=== PATIENT | female | born 1950 | race Caucasian/White ===

== ENCOUNTER 2016-08-03 14:09 | Inpatient (IN) | payer MEDICARE, OTHER ==
[~2016-08-03 14:09] MED LIST: ALPR0.25 PO; ASPI-482 PO; ATEN50TA PO; ATOR10TA60 PO; Amoxicillin PO; CETI10TA22 PO; CITA40TA12 PO; CLOP75TA27 PO; ERGO500012 PO; ESCI20TA PO; FLUT16SP NS; FURO-68 PO; HYDR12.53 PO; HYDR1TAB26 PO; LISI-334 PO; LISI10TA2 PO; LISI1TAB5 PO; LORA0.5T PO; LORA1TAB PO; MECL12.52 PO; NITR0.4T SL; OMEP20TA PO; OXYC10TA PO; OXYC10TA32 PO; SIMV40TA3 PO; VENTOLIN HFA18 GM INH; ZOLP10TA PO; ZOLP5TAB PO
[2016-08-03 16:23] VITALS: BP 154/71
[2016-08-03] MEDS ORDERED: ACETAMINOPHEN 325 MG TABLET. PO PRN ×2 (18:15→22:30)
--- NOTE | 2016-08-03 18:40 | EKG ---
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
[2016-08-03 19:00] VITALS: BP 136/56
[2016-08-03 19:26] VITALS: BP 154/71
[2016-08-03] MEDS ORDERED: IV NORMAL SALINE 1000ML BAG 1,000 ML IV SCH (20:00)
[2016-08-03] MEDS ORDERED: ATORVASTATIN CALCIUM 10 MG TABLET. PO SCH (21:00)
[2016-08-03] MEDS: HYDROCODONE/APAP 5/325MG TABLET. PO SCH (21:28)
[2016-08-03] MEDS: NICOTINE 7MG PATCH. TD SCH (21:30)
[2016-08-03 22:41] VITALS: BP 124/62
[2016-08-04 02:34] VITALS: BP 122/49
[2016-08-04 04:47] LABS: BASO # 0.1 x10^3/uL (0.0-0.2); BASO % 1 % (0-3); EOS % 2 % (0-3); HEMATOCRIT 34.2 % (36.0-47.0); HEMOGLOBIN 11.5 g/dL (12.0-15.5); LYMPH # 2.2 x10^3/uL (1.0-4.8); LYMPH % 41 % (24-48); MEAN CORPUSCULAR HEMOGLOBIN 31 pg (25-35); MEAN CORPUSCULAR HGB CONC 34 g/dL (31-37); MEAN CORPUSCULAR VOLUME 92 fL (79-100); MONO % 11 % (0-9); NEUT % 45 % (31-73); PLATELET COUNT 175 x10^3/uL (140-400); RED BLOOD COUNT 3.73 x10^6/uL (3.50-5.40); WHITE BLOOD COUNT 5.5 x10^3/uL (4.0-11.0)
[2016-08-04 04:52] LABS: CALCIUM 8.3 mg/dL (8.5-10.1); CREATININE 1.2 mg/dL (0.6-1.0); GFR 44.9; POTASSIUM 3.6 mmol/L (3.5-5.1)
[2016-08-04 07:00] VITALS: BP 158/59
[2016-08-04] MEDS ORDERED: PANTOPRAZOLE 40 MG TABLET. PO SCH (07:30)
[2016-08-04] MEDS ORDERED: CLOPIDOGREL BISULFATE 75 MG TABLET PO SCH (08:00)
[2016-08-04] MEDS ORDERED: ASPIRIN ENTERIC COATED 81 MG TABLET.DR. PO SCH (08:00)
--- NOTE | 2016-08-04 08:41 | RAD ---
Indication wheezing. Shortness of breath. A single view of the chest was obtained and is compared to a study 11/26/2015. Postoperative changes are noted. Heart size is within normal limits. A focal infiltrate is not seen. Significant pleural fluid is not present and there is no pneumothorax. A significant change when compared to the previous exam is not seen. IMPRESSION: No acute or focal process. No significant change
[2016-08-04] MEDS: HYDROCODONE/APAP 5/325MG TABLET. PO SCH (08:43)
[2016-08-04] MEDS: NICOTINE 7MG PATCH. TD SCH (08:44)
[2016-08-04] MEDS ORDERED: LISINOPRIL 20 MG TABLET PO SCH (09:00)
[2016-08-04] MEDS ORDERED: ATENOLOL 25 MG TABLET PO SCH (09:00)
--- NOTE | 2016-08-04 10:33 | PDOC ---
Provider Note Provider Note Pt seen .H&P dictated. #[id number] RONNELL CALDERON MD Aug 04, 2016 10:33
[2016-08-04 11:00] VITALS: BP 160/62
[2016-08-04 12:01] VITALS: BP_SYST 62
--- NOTE | 2016-08-04 18:49 | HP ---
ADMIT DATE: 08/03/2016 REASON FOR ADMISSION TO THE HOSPITAL: Hyponatremia, sodium 124. HISTORY OF PRESENT ILLNESS: The patient is a 65-year-old female patient known to me. She has a history of hyponatremia, was admitted last summer for hyponatremia, fall as well as weakness. She had routine labs a couple of days ago with sodium 124. The patient was admitted to the hospital for correction of hyponatremia with normal saline. PAST MEDICAL HISTORY: History of hypertension, hyperlipidemia, hypothyroidism, COPD, anxiety and depression. PAST SURGICAL HISTORY: Heart bypass surgery, hip replacement, bilateral carotid endarterectomy and history of cardiac stents. ALLERGIES: MORPHINE AND TRAZODONE. MEDICATIONS: Aspirin 81 mg, Plavix 75 mg, Lasix 40 mg, hydrochlorothiazide 12.5, atenolol 50, atorvastatin 10, Lexapro 20, lisinopril 20 mg, omeprazole 20, Ambien 5 and hydrocodone 1 q. 6. PERSONAL HISTORY: Smoked for 30 years, trying to cut down. Denies alcohol. The patient is on chronic pain medications. FAMILY HISTORY: Positive for hypertension, heart disease and lung problems. REVIEW OF SYMPTOMS: Denies any chest pain, shortness of breath or abdominal pain. There are some problems with dentition and dental caries, needs to see dentist. Denies any chest pain, shortness of breath or abdominal pain. PHYSICAL EXAMINATION: GENERAL: The patient is not in any distress. VITAL SIGNS: Shows a temperature of 97, pulse 63, respirations 14, blood pressure 154/71, 96% on room air. HEENT: Head is atraumatic. Pupils equal. Oral cavity, bad dental cavities, caries in the lower jaw. NECK: Supple. Has scars of bilateral carotid surgeries. Thyroid not enlarged. CHEST: Symmetrical, scar of heart surgery. CARDIOVASCULAR: S1, S2. LUNGS: Clear. ABDOMEN: Soft. No mass palpable. EXTERNAL GENITALIA: No Rodrigues. RECTAL: Deferred. EXTREMITIES: No calf tenderness, no edema. Pulses 1+. NEUROLOGIC: Cranial nerves intact. Power 5/5 in all extremities. SKIN: Normal skin turgor. LYMPH NODES: No significant lymphadenopathy. LABORATORY DATA: In the office, sodium 124. FINAL IMPRESSION: 1. Hyponatremia.Na 124 in the office 2 days ago. 2. History of recurrent hyponatremia in the past. 3. Coronary artery disease, status post bypass surgery. 4. Hypertension. 5. Hyperlipidemia. 6. H/O Carotid endarterectomy. 7. Anxiety and depression. PLAN: At this time is to admit to hospital, hydrate with IV fluids, correct hyponatremia with normal saline and see how the patient's condition improves. monitor electrolytes. RONNELL CALDERON MD DR: CARIN/honey JOB#: [id number] / [id number] DONNA
== END 2016-08-04 11:45 | disposition home or self-care (01) | DRG 641 ==
LOC: 5 SOUTH 15:32
PROVIDERS: ADMIT Internal Medicine; ATTEND Internal Medicine
DX: E87.1 Hypo-osmolality and hyponatremia (principal); F32.9 Major depressive disorder, single episode, unspecified; F41.9 Anxiety disorder, unspecified; E03.9 Hypothyroidism, unspecified; E78.5 Hyperlipidemia, unspecified; Z96.649 Presence of unspecified artificial hip joint; I10 Essential (primary) hypertension; J44.9 Chronic obstructive pulmonary disease, unspecified; Z82.49 Family history of ischemic heart disease and other diseases of the circulatory system; Z95.5 Presence of coronary angioplasty implant and graft; Z88.5 Allergy status to narcotic agent; Z88.8 Allergy status to other drugs, medicaments and biological substances
CPT/HCPCS: 36415; 71010; 80048; 85027; 93005; J7030

== ENCOUNTER 2016-10-01 17:50 | Inpatient (IN) | payer MEDICARE, OTHER ==
[~2016-10-01] VITALS: Ht 160 cm; Wt 61.5 kg
[2016-10-01 18:37] LABS: BASO # 0.1 x10^3/uL (0.0-0.2); BASO % 1 % (0-3); EOS % 2 % (0-3); HEMATOCRIT 38.9 % (36.0-47.0); HEMOGLOBIN 13.1 g/dL (12.0-15.5); LYMPH # 1.8 x10^3/uL (1.0-4.8); LYMPH % 28 % (24-48); MEAN CORPUSCULAR HEMOGLOBIN 31 pg (25-35); MEAN CORPUSCULAR HGB CONC 34 g/dL (31-37); MEAN CORPUSCULAR VOLUME 92 fL (79-100); MONO % 12 % (0-9); NEUT % 57 % (31-73); PLATELET COUNT 288 x10^3/uL (140-400); RED BLOOD COUNT 4.21 x10^6/uL (3.50-5.40); RED CELL DISTRIBUTION WIDTH 14.2 % (11.5-14.5); WHITE BLOOD COUNT 6.5 x10^3/uL (4.0-11.0)
[2016-10-01 18:53] LABS: ANION GAP 7 (6-14); BLOOD UREA NITROGEN 38 mg/dL (7-20); CALCIUM 9.2 mg/dL (8.5-10.1); CARBON DIOXIDE 31 mmol/L (21-32); CHLORIDE 87 mmol/L (98-107); CREATININE 1.9 mg/dL (0.6-1.0); GFR 26.4; GLUCOSE 89 mg/dL (70-99); POTASSIUM 4.2 mmol/L (3.5-5.1); SODIUM 125 mmol/L (136-145)
[2016-10-01 18:59] LABS: ALBUMIN 3.7 g/dL (3.4-5.0); ALK PHOS 96 U/L (46-116); ALT (SGPT) 19 U/L (14-59); AST (SGOT) 28 U/L (15-37); DIRECT BILIRUBIN < 0.1 mg/dL (0.0-0.2); TOTAL BILIRUBIN 0.4 mg/dL (0.2-1.0); TOTAL PROTEIN 7.4 g/dL (6.4-8.2)
--- NOTE | 2016-10-01 19:18 | PHYS DOC ---
Past Medical History Past Medical History: Anxiety, Arthritis, Bronchitis, High Cholesterol, Hypertension Additional Past Medical Histor: blood clots Past Surgical History: Coronary Bypass Surgery, Hip Replacement, Other Additional Past Surgical Histo: total R hip, right shoulder, stent placement, R & L carotid Alcohol Use: None Drug Use: None Adult General Chief Complaint Chief Complaint: DIZZY/LIGHT HEADED HPI HPI 66-year-old female presenting the emergency department with a headache and generalized fatigue and malaise. She also reports feeling lightheaded when she stands up. She denies vertigo. She denies fevers chills or vision changes. Her headache is moderate nonradiating without alleviating factors. She has a history of headaches and this one is similar to previous. She describes it as sharp. Review of systems is negative for vision changes vomiting fevers chills chest pain or shortness of breath. All other review of systems is negative unless otherwise noted in history of present illness. Review of Systems Review of Systems SEE ABOVE. Current Medications Current Medications Current Medications Medications (Trade) Dose Ordered Sig/Sherrell Start Time Stop Time Status Last Admin Dose Admin Diphenhydramine HCl (Benadryl) 25 mg 1X ONCE 10/01/16 19:30 10/01/16 19:31 DC 10/01/16 19:36 25 MG Metoclopramide HCl (Reglan) 10 mg 1X ONCE 10/01/16 19:30 10/01/16 19:31 DC 10/01/16 19:39 10 MG Sodium Chloride 500 ml @ 500 mls/hr 1X ONCE 10/01/16 20:30 10/01/16 21:29 Allergies Allergies Allergies Coded Allergies Type Severity Reaction Last Updated Verified trazodone Allergy Severe "my throat closes up" 04/13/15 Yes morphine Adverse Reaction Intermediate hallucinations 04/13/15 Yes Physical Exam Physical Exam Constitutional: Well developed, well nourished, no acute distress, non-toxic appearance. [] HENT: Normocephalic, atraumatic, bilateral external ears normal, oropharynx moist, no oral exudates, nose normal. Nontender temporal artery bilaterally. Eyes: PERRLA, EOMI, conjunctiva normal, no discharge. [] Neck: Normal range of motion, no tenderness, supple, no stridor. Cardiovascular:Heart rate regular rhythm, no murmur [] Lungs & Thorax: Bilateral breath sounds clear to auscultation Abdomen: Bowel sounds normal, soft, no tenderness, no masses, no pulsatile masses. [] Skin: Warm, dry, no erythema, no rash. Back: No tenderness, no CVA tenderness. [] Extremities: No tenderness, no cyanosis, no clubbing, ROM intact, no edema. [] Neurologic: Mental status: Awake oriented and alert x3 Cranial nerves: Extraocular movements intact, eyebrows doris bilaterally smile symmetric, uvula elevation, shoulder shrug intact, tongue protrusion normal DTRs: 2+ Sensation: equal and normal in all extremities Strength: 5/5 in upper and lower extremities bilaterally Psychologic: Affect normal, judgement normal, mood normal. [] Current Patient Data Vital Signs Vital Signs Date Time Temp Pulse Resp B/P (MAP) Pulse Ox O2 Delivery O2 Flow Rate FiO2 10/01/16 18:15 97.8 62 15 162/71 (101) 95 Room Air 97.8 Lab Values Laboratory Tests Test 10/01/16 18:15 10/01/16 18:30 10/01/16 19:25 Sodium Level 125 mmol/L (136-145) L Potassium Level 4.2 mmol/L (3.5-5.1) Chloride Level 87 mmol/L (98-107) L Carbon Dioxide Level 31 mmol/L (21-32) Anion Gap 7 (6-14) Blood Urea Nitrogen 38 mg/dL (7-20) H Creatinine 1.9 mg/dL (0.6-1.0) H Estimated GFR (Cockcroft-Gault) 26.4 Glucose Level 89 mg/dL (70-99) Calcium Level 9.2 mg/dL (8.5-10.1) Total Bilirubin 0.4 mg/dL (0.2-1.0) Direct Bilirubin < 0.1 mg/dL (0.0-0.2) Aspartate Amino Transferase (AST) 28 U/L (15-37) Alanine Aminotransferase (ALT) 19 U/L (14-59) Alkaline Phosphatase 96 U/L (46-116) Troponin I Quantitative < 0.017 ng/mL (0.000-0.055) IP-Rbo-X-Type Natriuretic Peptide 150 pg/mL (0-124) H Total Protein 7.4 g/dL (6.4-8.2) Albumin 3.7 g/dL (3.4-5.0) Lipase 238 U/L (73-393) White Blood Count 6.5 x10^3/uL (4.0-11.0) Red Blood Count 4.21 x10^6/uL (3.50-5.40) Hemoglobin 13.1 g/dL (12.0-15.5) Hematocrit 38.9 % (36.0-47.0) Mean Corpuscular Volume 92 fL (79-100) Mean Corpuscular Hemoglobin 31 pg (25-35) Mean Corpuscular Hemoglobin Concent 34 g/dL (31-37) Red Cell Distribution Width 14.2 % (11.5-14.5) Platelet Count 288 x10^3/uL (140-400) Neutrophils (%) (Auto) 57 % (31-73) Lymphocytes (%) (Auto) 28 % (24-48) Monocytes (%) (Auto) 12 % (0-9) H Eosinophils (%) (Auto) 2 % (0-3) Basophils (%) (Auto) 1 % (0-3) Neutrophils # (Auto) 3.7 x10^3uL (1.8-7.7) Lymphocytes # (Auto) 1.8 x10^3/uL (1.0-4.8) Monocytes # (Auto) 0.8 x10^3/uL (0.0-1.1) Eosinophils # (Auto) 0.1 x10^3/uL (0.0-0.7) Basophils # (Auto) 0.1 x10^3/uL (0.0-0.2) Urine Collection Type Unknown Urine Color Yellow Urine Clarity Clear Urine pH 5.5 Urine Specific [place] 1.010 Urine Protein Negative mg/dL (NEG-TRACE) Urine Glucose (UA) Negative mg/dL (NEG) Urine Ketones (Stick) Negative mg/dL (NEG) Urine Blood Negative (NEG) Urine Nitrite Negative (NEG) Urine Bilirubin Negative (NEG) Urine Urobilinogen Dipstick 0.2 mg/dL (0.2 mg/dL) Urine Leukocyte Esterase Negative (NEG) Urine RBC Occ /HPF (0-2) Urine WBC Occ /HPF (0-4) Urine Squamous Epithelial Cells Few /LPF Urine Bacteria 0 /HPF (0-FEW) Urine Hyaline Casts Few /HPF Urine Mucus Slight /LPF Laboratory Tests 10/01/16 18:30 Laboratory Tests 10/01/16 18:15 EKG EKG [] Radiology/Procedures Radiology/Procedures [] Course & Med Decision Making Course & Med Decision Making Pertinent Labs and Imaging studies reviewed. (See chart for details) [] 66-year-old female presenting to the emergency department today with lightheadedness and a headache. Vital signs afebrile normal heart rate. IV fluids Reglan and Benadryl given for headache. Blood work obtained. EKG unremarkable. Chest x-ray obtained. Blood work showed the patient to be uremic from dehydration and hyponatremic. She was given saline in the emergency department and subsequent admitted to her primary care physician for further evaluation workup and care. Dragon Disclaimer Dragon Disclaimer This electronic medical record was generated, in whole or in part, using a voice recognition dictation system. Departure Departure Impression: Primary Impression: Acute hyponatremia Additional Impressions: Lightheadedness Headache Malaise Uremia Dehydration Prerenal azotemia Disposition: ADMITTED INPATIENT Admitting Physician: Delicia Solis Condition: IMPROVED Referrals: DELICIA SOLIS MD (PCP) Problem Qualifiers LARISA CUETO MD October 01, 2016 19:18
[2016-10-01] MEDS ORDERED: diphenhydrAMINE 50 MG/ML VIAL IVP ONE (19:30)
[2016-10-01] MEDS ORDERED: METOCLOPRAMIDE HCL 10 MG/2 ML VIAL. IV ONE (19:30)
[2016-10-01] MEDS ORDERED: IV NORMAL SALINE 500ML BAG 500 ML IV ONE ×2 (19:30→20:30)
[2016-10-01 19:32] LABS: BILIRUBIN,URINE NEGATIVE (NEG); GLUCOSE,URINE NEGATIVE (NEG); NITRITE,URINE NEGATIVE (NEG); PH,URINE 5.5; PROTEIN,URINE NEGATIVE (NEG-TRACE); UROBILINOGEN,URINE 0.2 mg/dL (0.2 mg/dL)
[2016-10-01 19:35] LABS: BACTERIA,URINE 0 /HPF (0-FEW); RBC,URINE OCC /HPF (0-2); WBC,URINE OCC /HPF (0-4)
[2016-10-01 19:36] LABS: SQUAMOUS EPITHELIAL CELL,UR FEW /LPF
[2016-10-01] MEDS ORDERED: ONDANSETRON PF 4 MG/2 ML VIAL. IV PRN (20:15)
--- NOTE | 2016-10-01 21:13 | ACF ---
Admission Forms Criteria HYPONATREMIA; HYPERNATREMIA; HYPOKALEMIA; HYPERKALEMIA; HYPOCALCEMIA; HYPERCALCEMIA Clinical Indications for Inpatient Care (Place 'X' for any and all applicable criteria): Ongoing inpatient care may be indicated for ANY ONE of the following [G](1)(2)(3 )(5): [X ]I. Hyponatremia with ANY ONE of the following: [X ]a) Sodium less than 130 mEq/L (mmol/L) (new) (6)(22) [ ]b) Sodium less than 135 mEq/L (mmol/L) with ANY ONE of the following: [ ]i) Severe medical etiology requiring inpatient management (eg, heart failure, hypovolemia) [ ]ii) Altered mental status [ ]iii) Seizures [ ]II. Hypernatremia with ANY ONE of the following: [ ]a) Sodium greater than 155 mEq/L (mmol/L) [ ]b) Sodium greater than 150 mEq/L (mmol/L) with ANY ONE of the following: [ ] i) Altered mental status [ ]ii) Seizures [ ]iii) Severe medical etiology (eg, hypovolemia, diabetes insipidus) [ ]iv) Severe weakness [ ]v) Severe medical etiology (eg, hemolysis, infection, drug overdose) [ ]III. Hypokalemia with ANY ONE of the following: [ ]a) Potassium less than 2.5 mEq/L (mmol/L) despite outpatient and emergency treatment [ ]b) Potassium less than 3.0 mEq/L (mmol/L) with ANY ONE of the following: [ ]i) Weakness [ ]ii) Cardiac abnormality (eg, arrhythmia, conduction disturbance) [ ]iii) Cardiac ischemia [ ]iv) Ileus [ ]v) Ongoing medical cause requiring inpatient management. ( e.g., acute renal wasting, SIADH) [ ]vi) Other severe symptoms [ ] IV. Hyperkalemia with ANY ONE of the following: [ ]a) Potassium greater than 6.5 mEq/L (mmol/L) [ ]b) Potassium greater than 5 mEq/L (mmol/L) with ANY ONE of the following: [ ]i) Severe ECG findings [H] [ ]ii) Acute worsening of renal failure (creatinine greater than 2.5 mg/dL (221 micromoles/L) or significant elevation for age and size) [ ] V. Hypocalcemia with ANY ONE of the following: [ ]a) Calcium less than 7 mg/dL (1.75 mmol/L) despite outpatient and emergency treatment(19) [ ]b) Calcium less than 8 mg/dL (2 mmol/L) with significant symptoms or findings; examples include: [ ]i) Cardiac abnormality (eg, arrhythmia or conduction disturbance) [ ]ii) Altered mental status [ ]iii) Seizures [ ]iv) Breathing difficulty [ ]v) Muscle spasms [ ]. Hypercalcemia with ANY ONE of the following: [ ]a) Calcium greater than 14 mg/dL (3.5 mmol/L) [ ]b) Calcium greater than 12 mg/dL (3 mmol/L) with ANY ONE of the following: [ ]i) Significant dehydration or hypovolemia as indicated by ANY ONE of the following(2): [ ]1. Clinically significant dehydration as indicated by ANY ONE of the following: [ ]A. Acute loss of weight from baseline (5% of body weight in adults, 9% in pediatric patients) [ ]B. Hemodynamic instability [ ]C. Acute renal failure [ ]D. Serum sodium greater than 150 mEq/L (mmol/L) [ ]2) Dehydration that is persistent indicated by ALL of the following: [ ]A. Oral rehydration therapy not tolerated or insufficient to adequately correct dehydration [ ]B. Appropriate intravenous treatment (eg, fluids ) does not readily correct dehydration ie, after 12 to 24 hours of treatment) [ ]ii) Significant symptoms or findings; examples include: [ ]1) Altered mental status [ ]2) Cardiac abnormality (eg, arrhythmia, conduction disturbance) [ ]3) Cardiac abnormality (eg, arrhythmia, conduction disturbance) The original [facility] content created by [employer] [email or web address] has been revised. The portions of the content which have been revised are identified through the use of italic text or in bold, and [facility] has neither reviewed nor approved the modified material. All other unmodified content is copyright [facility] Please see references footnoted in the original [facility] [employer] edition 2016 Admission Criteria Met?: Yes AG ROSA October 01, 2016 21:13
[2016-10-01] MEDS ORDERED: ZOLPIDEM 5 MG TABLET. PO PRN (22:30)
[2016-10-01] MEDS: IV NORMAL SALINE 1000ML BAG 1,000 ML IV SCH (22:39)
[2016-10-01] MEDS: oxyCODONE ER 10 MG TAB.ER.12H PO SCH (22:51)
[2016-10-01 22:57] VITALS: BP 151/59
[2016-10-01 22:58] VITALS: BP 151/59
[2016-10-01] MEDS ORDERED: ATORVASTATIN CALCIUM 10 MG TABLET. PO SCH (23:00)
[2016-10-02] MEDS: oxyCODONE IR 5 MG TABLET PO PRN ×2 (03:05→06:40)
[2016-10-02 03:19] VITALS: BP 103/45
[2016-10-02] MEDS: IV NORMAL SALINE 1000ML BAG 1,000 ML IV SCH (05:31)
[2016-10-02 06:35] LABS: CALCIUM 8.8 mg/dL (8.5-10.1); CREATININE 1.4 mg/dL (0.6-1.0); GFR 37.5; POTASSIUM 3.8 mmol/L (3.5-5.1)
[2016-10-02] MEDS ORDERED: PANTOPRAZOLE 40 MG TABLET.DR. PO SCH (07:30)
--- NOTE | 2016-10-02 07:40 | EKG ---
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
[2016-10-02 07:50] VITALS: BP 152/59
--- NOTE | 2016-10-02 08:05 | RAD ---
EXAM: Chest, single view. HISTORY: Shortness of breath. COMPARISON: 08/03/2016. FINDINGS: A frontal view of the chest is obtained. There is no infiltrate, effusion or pneumothorax. There is hyperinflation due to infiltrate upper door emphysema. The heart is upper normal in size. There are findings consistent with median sternotomy. IMPRESSION: No acute pulmonary finding.
[2016-10-02] MEDS: oxyCODONE ER 10 MG TAB.ER.12H PO SCH (08:40)
[2016-10-02] MEDS ORDERED: ATENOLOL 25 MG TABLET. PO SCH (09:00)
[2016-10-02] MEDS ORDERED: LISINOPRIL 20 MG TABLET PO SCH (09:00)
[2016-10-02] MEDS ORDERED: ASPIRIN ENTERIC COATED 81 MG TABLET.DR. PO SCH (09:00)
[2016-10-02] MEDS ORDERED: CLOPIDOGREL BISULFATE 75 MG TABLET PO SCH (09:00)
[2016-10-02 11:00] VITALS: BP 157/62
--- NOTE | 2016-10-02 11:16 | PDOC ---
Provider Note Provider Note Pt seen .H&P and discharge summary dictated. #[id number] RONNELL CALDERON MD October 02, 2016 11:16
--- NOTE | 2016-10-02 11:52 | HP ---
ADMIT DATE: 10/01/2016 COMBINED HISTORY AND PHYSICAL AND DISCHARGE SUMMARY LOCATION: 570. REASON FOR ADMISSION TO THE HOSPITAL: Hyponatremia and acute renal insufficiency. HISTORY OF PRESENT ILLNESS: The patient is a 66-year-old female, patient was complaining of feeling lightheaded and dizzy, came to the Emergency Room, sodium was 125 and creatinine was 1.9, was given normal saline and this morning went up to 131, creatinine came down to 1.4. The patient was feeling better, was anxious to go home. PAST MEDICAL HISTORY: History of coronary artery disease, carotid blockages, hypertension, hyperlipidemia, arthritis, anxiety, and depression, chronic pain medications. PAST SURGICAL HISTORY: Heart bypass surgery, hip replacement, carotid endarterectomies and cardiac stents. ALLERGIES: None. PERSONAL HISTORY: Smokes 1 pack. Denies alcohol. Denies any street drugs, takes narcotic pain medications. MEDICATIONS AT HOME: She is taking Lexapro 20 mg daily, aspirin 81 mg daily, atenolol 50 mg daily, atorvastatin 10 mg daily, Plavix 75 mg daily, lisinopril 20 mg daily, omeprazole 20 mg daily, oxycodone 10 mg q. 4, OxyContin 10 mg q. 12, and Ambien 5 mg daily. FAMILY HISTORY: Positive for heart disease and hypertension. REVIEW OF SYSTEMS: CARDIAC: No chest pain. LUNGS: No cough or sputum. GASTROINTESTINAL: No nausea, vomiting, or diarrhea. Rest of the 14-system was reviewed and negative. PHYSICAL EXAMINATION: GENERAL: The patient is pleasant and feeling better. She is anxious to go home. VITAL SIGNS: At the time of admission shows temperature 97, pulse 62, respirations 16, blood pressure 162/71, 95% on room air. HEENT: Head is atraumatic. Pupils equal. Oral cavity: No congestion. NECK: Supple. Thyroid not enlarged. JVD not elevated. CHEST: Scar of heart surgery. CARDIOVASCULAR: S1, S2. LUNGS: Clear to auscultation. ABDOMEN: Soft. No mass palpable. EXTERNAL GENITALIA: No Rodrigues. RECTAL: Deferred. EXTREMITIES: No calf tenderness. Pulses 1+. NEUROLOGIC: Cranial nerves intact. Power 5/5 in all extremities. LABORATORY DATA: Shows a white count of 6, hemoglobin 13, platelets 268. Electrolytes show sodium 125, potassium 4.2, chloride 87, bicarbonate 31, BUN 38, creatinine 1.9. LFTs were normal. This morning, creatinine was 1.4, sodium 131. UA was negative. Chest x-ray was negative. EKG done, report is pending. FINAL IMPRESSION: 1. Hyponatremia, probably related to Lexapro. 2. Acute renal insufficiency, improved with hydration. 3. Coronary artery disease, bypass surgery. 4. H/O bilateral carotid surgeries. 5. Depression. 6. Anxiety. PLAN: At this time was admitted to the hospital, was given IV hydration with normal saline and sodium went up from 125 to 131, creatinine improved from 1.9 to 1.4 and we will discontinue the Lexapro and check with electrolytes again in 1 week and will change to some other antidepressants in the office. RONNELL CALDERON MD DR: CARIN/honey JOB#: [id number] / [id number] DONNA
== END 2016-10-02 12:25 | disposition home or self-care (01) | DRG 683 ==
LOC: ER 17:50 → 5 SOUTH 20:01
PROVIDERS: ADMIT Internal Medicine; ATTEND Internal Medicine
DX: N17.9 Acute kidney failure, unspecified (principal); E87.1 Hypo-osmolality and hyponatremia; E78.00 Pure hypercholesterolemia, unspecified; E78.5 Hyperlipidemia, unspecified; I25.10 Atherosclerotic heart disease of native coronary artery without angina pectoris; I10 Essential (primary) hypertension; Z96.649 Presence of unspecified artificial hip joint; E86.0 Dehydration; F32.9 Major depressive disorder, single episode, unspecified; F41.9 Anxiety disorder, unspecified; J40 Bronchitis, not specified as acute or chronic; M19.90 Unspecified osteoarthritis, unspecified site; G89.29 Other chronic pain; N28.9 Disorder of kidney and ureter, unspecified; Z82.49 Family history of ischemic heart disease and other diseases of the circulatory system; Z95.5 Presence of coronary angioplasty implant and graft; Z95.1 Presence of aortocoronary bypass graft; Z88.5 Allergy status to narcotic agent; Z88.8 Allergy status to other drugs, medicaments and biological substances; Z79.82 Long term (current) use of aspirin; Z79.899 Other long term (current) drug therapy
CPT/HCPCS: 36415; 71010; 80048; 80076; 81001; 83605; 83690; 83880; 84484; 85027; 93005; 96361; 96374; 96375; J1200; J2765; J7030; J7040; 99285-25

== ENCOUNTER 2016-10-04 20:28 | Inpatient (IN) | payer MEDICARE, OTHER ==
[~2016-10-04] VITALS: Ht 165.1 cm; Wt 64.9 kg
[2016-10-04] MEDS ORDERED: IV NORMAL SALINE 1000ML BAG 1,000 ML IV SCH ×2 (21:16→22:30)
[2016-10-04 21:22] LABS: BASO # 0.1 x10^3/uL (0.0-0.2); BASO % 1 % (0-3); EOS % 1 % (0-3); HEMATOCRIT 38.1 % (36.0-47.0); LYMPH # 1.5 x10^3/uL (1.0-4.8); LYMPH % 21 % (24-48); MEAN CORPUSCULAR HEMOGLOBIN 32 pg (25-35); MEAN CORPUSCULAR HGB CONC 34 g/dL (31-37); MEAN CORPUSCULAR VOLUME 93 fL (79-100); MONO % 9 % (0-9); NEUT % 69 % (31-73); PLATELET COUNT 281 x10^3/uL (140-400); RED BLOOD COUNT 4.12 x10^6/uL (3.50-5.40); WHITE BLOOD COUNT 7.2 x10^3/uL (4.0-11.0)
--- NOTE | 2016-10-04 21:23 | PHYS DOC ---
Past Medical History Past Medical History: Anxiety, Arthritis, Bronchitis, CAD, Depression, High Cholesterol, Hypertension Additional Past Medical Histor: blood clots, CHRONIC PAIN, HYPONATREMIA Past Surgical History: Coronary Bypass Surgery, , Hip Replacement, Other Additional Past Surgical Histo: total R hip, R shoulder, stent placement, R & L carotid Alcohol Use: None Drug Use: None Adult General Chief Complaint Chief Complaint: DIZZY/LIGHT HEADED HPI HPI Patient is a 66 year old female who presents with complaint of dizziness, weakness, and headache. Patient states her symptoms have been present for the past 2 days. Patient states that she was recently admitted to the hospital for treatment of hyponatremia and was released 2 days ago. Patient states initially she felt better, however she started having worsening symptoms yesterday evening. Patient states that her headache is global and rates it as 8 out of 10 currently. Patient also states that she has been very unsteady on her feet even with use of a cane. Patient's blood pressure has also been running consistently high over the past 24 hours as noted in the triage note. Patient denies any chest pain, shortness of breath, nausea, or vomiting. Patient denies any localized weakness. Patient follows Dr. Calderon for primary care. Daughter is present at bedside and states that the patient has also had problems with intermittent confusion over the past 24 hours. Review of Systems Review of Systems Constitutional: Generalized weakness, denies fever or chills [] Eyes: Denies change in visual acuity, redness, or eye pain [] HENT: Denies nasal congestion or sore throat [] Respiratory: Denies cough or shortness of breath [] Cardiovascular: Denies chest pain or edema [] GI: Denies abdominal pain, nausea, vomiting, bloody stools or diarrhea [] : Denies dysuria or hematuria [] Musculoskeletal: Denies back pain or joint pain [] Integument: Denies rash or skin lesions [] Neurologic: Headache, dizziness, denies focal weakness or sensory changes [] Endocrine: Denies polyuria or polydipsia [] Current Medications Current Medications Current Medications Medications (Trade) Dose Ordered Sig/Hserrell Start Time Stop Time Status Last Admin Dose Admin Fentanyl Citrate (Fentanyl 2ml Vial) 50 mcg PRN Q15MIN PRN 10/04/16 21:30 10/05/16 21:29 10/04/16 21:37 50 MCG Meclizine HCl (Antivert) 25 mg 1X ONCE 10/04/16 21:30 10/04/16 21:31 DC 10/04/16 21:39 25 MG Ondansetron HCl (Zofran) 4 mg 1X ONCE 10/04/16 21:30 10/04/16 21:31 DC 10/04/16 21:37 4 MG Sodium Chloride 1,000 ml @ 1,000 mls/hr Q1H 10/04/16 21:16 10/04/16 22:15 DC 10/04/16 21:36 1,000 MLS/HR Allergies Allergies Allergies Coded Allergies Type Severity Reaction Last Updated Verified No Known Drug Allergies 10/01/16 No Physical Exam Physical Exam Constitutional: Alert, afebrile, appears in moderate discomfort. [] HENT: Normocephalic, atraumatic, bilateral external ears normal, oropharynx moist, no oral exudates, nose normal. [] Eyes: PERRLA, EOMI, conjunctiva normal, no discharge. [] Neck: Normal range of motion, no tenderness, supple, no stridor. [] Cardiovascular:Heart rate regular rhythm, no murmur [] Lungs & Thorax: Bilateral breath sounds clear to auscultation [] Abdomen: Bowel sounds normal, soft, no tenderness, no masses, no pulsatile masses. [] Skin: Warm, dry, no erythema, no rash. [] Back: No tenderness, no CVA tenderness. [] Extremities: No tenderness, no cyanosis, no clubbing, ROM intact, no edema. [] Neurologic: Alert and oriented X 3, normal motor function, normal sensory function, no focal deficits noted. [] Current Patient Data Vital Signs Vital Signs Date Time Temp Pulse Resp B/P (MAP) Pulse Ox O2 Delivery O2 Flow Rate FiO2 10/04/16 22:06 65 219/95 (136) 10/04/16 21:39 97 Room Air 10/04/16 21:36 23 10/04/16 20:35 98.7 98.7 Lab Values Laboratory Tests Test 10/04/16 20:40 10/04/16 21:30 White Blood Count 7.2 x10^3/uL (4.0-11.0) Red Blood Count 4.12 x10^6/uL (3.50-5.40) Hemoglobin 13.0 g/dL (12.0-15.5) Hematocrit 38.1 % (36.0-47.0) Mean Corpuscular Volume 93 fL (79-100) Mean Corpuscular Hemoglobin 32 pg (25-35) Mean Corpuscular Hemoglobin Concent 34 g/dL (31-37) Red Cell Distribution Width 14.0 % (11.5-14.5) Platelet Count 281 x10^3/uL (140-400) Neutrophils (%) (Auto) 69 % (31-73) Lymphocytes (%) (Auto) 21 % (24-48) L Monocytes (%) (Auto) 9 % (0-9) Eosinophils (%) (Auto) 1 % (0-3) Basophils (%) (Auto) 1 % (0-3) Neutrophils # (Auto) 5.0 x10^3uL (1.8-7.7) Lymphocytes # (Auto) 1.5 x10^3/uL (1.0-4.8) Monocytes # (Auto) 0.6 x10^3/uL (0.0-1.1) Eosinophils # (Auto) 0.0 x10^3/uL (0.0-0.7) Basophils # (Auto) 0.1 x10^3/uL (0.0-0.2) Sodium Level 133 mmol/L (136-145) L Potassium Level 3.9 mmol/L (3.5-5.1) Chloride Level 93 mmol/L (98-107) L Carbon Dioxide Level 32 mmol/L (21-32) Anion Gap 8 (6-14) Blood Urea Nitrogen 17 mg/dL (7-20) Creatinine 1.2 mg/dL (0.6-1.0) H Estimated GFR (Cockcroft-Gault) 44.8 BUN/Creatinine Ratio 14 (6-20) Glucose Level 108 mg/dL (70-99) H Calcium Level 10.2 mg/dL (8.5-10.1) H Magnesium Level 1.8 mg/dL (1.8-2.4) Total Bilirubin 0.4 mg/dL (0.2-1.0) Aspartate Amino Transferase (AST) 24 U/L (15-37) Alanine Aminotransferase (ALT) 18 U/L (14-59) Alkaline Phosphatase 97 U/L (46-116) Total Protein 7.6 g/dL (6.4-8.2) Albumin 3.9 g/dL (3.4-5.0) Albumin/Globulin Ratio 1.1 (1.0-1.7) Urine Collection Type Unknown Urine Color Yellow Urine Clarity Clear Urine pH 6.0 Urine Specific Mayer 1.015 Urine Protein Negative mg/dL (NEG-TRACE) Urine Glucose (UA) Negative mg/dL (NEG) Urine Ketones (Stick) Negative mg/dL (NEG) Urine Blood Negative (NEG) Urine Nitrite Negative (NEG) Urine Bilirubin Negative (NEG) Urine Urobilinogen Dipstick 0.2 mg/dL (0.2 mg/dL) Urine Leukocyte Esterase Negative (NEG) Urine RBC 1-2 /HPF (0-2) Urine WBC 1-4 /HPF (0-4) Urine Squamous Epithelial Cells Few /LPF Urine Bacteria 0 /HPF (0-FEW) Urine Hyaline Casts Moderate /HPF Urine Mucus Slight /LPF Laboratory Tests 10/04/16 20:40 Laboratory Tests 10/04/16 20:40 EKG EKG Interpreted by me: Heart rate 64, sinus rhythm, normal intervals, normal axis, no acute ST/T-wave abnormalities present [] Radiology/Procedures Radiology/Procedures One view AP chest x-ray interpreted by me: No infiltrate, no effusions, normal cardiac silhouette [facility] [address] [facility] [place] [address] IMAGING REPORT Signed PATIENT: FELI ROSEN ACCOUNT: [id number] : 1950 LOCATION: [address] [place] [address] AGE: 66 SEX: F EXAM STATUS: ADM IN ORD. PHYSICIAN: MARIA ESTHER LAMBERT MD REASON: headache, confusion for 24 hours PROCEDURE: CT HEAD WO CONTRAST CT HEAD WO CONTRAST History: headaches , confusion x 1 month Comparison: October 10, 2015. Technique: Noncontrast [address] images were acquired from the skull base to the vertex. Exposure: One or more of the following individualized dose reduction techniques were utilized for this examination: 1. Automated exposure control 2. Adjustment of the mA and/or kV according to patient size 3. Use of iterative reconstruction technique. Findings: No acute extra-axial or parenchymal hemorrhage is identified. There is no significant intra-axial mass effect, midline shift, or extra-axial fluid collection. The valero-white differentiation of the major vascular territories is preserved. Ventricular size is stable. There is again mild/moderate generalized supratentorial atrophy somewhat greater of the frontal lobes. The mastoid air cells and the visualized paranasal sinuses are aerated. No acute calvarial abnormality is identified. There is atherosclerotic calcification of the carotid siphons bilaterally. Impression: 1. No acute intracranial abnormality is identified. If there is concern for evolving or acute ischemia, followup CT or MRI could be beneficial. There is again supratentorial atrophy. Electronically signed by: Otis Doan MD (10/04/2016 10:37 PM) DICTATED and SIGNED BY: OTIS DOAN MD DATE: 10/04/162234 CC: MARIA ESTHER LAMBERT MD; DELICIA CALDERON MD ~ [] Course & Med Decision Making Course & Med Decision Making Pertinent Labs and Imaging studies reviewed. (See chart for details) Patient's exam shows no localizing symptoms consistent with stroke. The patient does show significantly elevated blood pressure. Patient started on IV hydralazine. Due to presence of confusion and gait instability, the patient will need to be admitted the hospital for further treatment. I spoke with Dr. Calderon who accepted care patient in hospital. Patient's blood pressure will be treated with IV Vasotec as well as hydralazine IV when necessary. Dragon Disclaimer Dragon Disclaimer This electronic medical record was generated, in whole or in part, using a voice recognition dictation system. Departure Departure Impression: Primary Impression: Accelerated hypertension Additional Impressions: Hyponatremia Confusion Generalized weakness Disposition: 09 ADMITTED INPATIENT Admitting Physician: Delicia Calderon Condition: GUARDED Referrals: DELICIA CALDERON MD (PCP) Problem Qualifiers MARIA ESTHER LAMBERT MD October 04, 2016 21:23
[2016-10-04] MEDS ORDERED: ONDANSETRON PF 4 MG/2 ML VIAL. IV ONE (21:30)
[2016-10-04] MEDS ORDERED: MECLIZINE HCL 12.5 MG TABLET. PO ONE (21:30)
[2016-10-04 21:36] LABS: CALCIUM 10.2 mg/dL (8.5-10.1); CREATININE 1.2 mg/dL (0.6-1.0); GFR 44.8; POTASSIUM 3.9 mmol/L (3.5-5.1)
[2016-10-04] MEDS: fentaNYL PF VIAL 100 MCG/2 ML VIAL IV PRN (21:37)
[2016-10-04 21:41] LABS: ALBUMIN 3.9 g/dL (3.4-5.0); ALBUMIN/GLOBULIN RATIO 1.1 (1.0-1.7); MAGNESIUM 1.8 mg/dL (1.8-2.4); TOTAL BILIRUBIN 0.4 mg/dL (0.2-1.0); TOTAL PROTEIN 7.6 g/dL (6.4-8.2)
[2016-10-04 21:42] LABS: BILIRUBIN,URINE NEGATIVE (NEG); GLUCOSE,URINE NEGATIVE (NEG); NITRITE,URINE NEGATIVE (NEG); PROTEIN,URINE NEGATIVE (NEG-TRACE); UROBILINOGEN,URINE 0.2 mg/dL (0.2 mg/dL)
[2016-10-04 21:55] LABS: BACTERIA,URINE 0 /HPF (0-FEW); SQUAMOUS EPITHELIAL CELL,UR FEW /LPF
[2016-10-04] MEDS ORDERED: hydrALAZINE 20 MG/ML VIAL. IVP ONE (22:30)
[2016-10-04] MEDS ORDERED: ONDANSETRON PF 4 MG/2 ML VIAL. IV PRN (22:30)
--- NOTE | 2016-10-04 22:40 | RAD ---
CT HEAD WO CONTRAST History: headaches , confusion x 1 month Comparison: October 10, 2015. Technique: Noncontrast [address] images were acquired from the skull base to the vertex. Exposure: One or more of the following individualized dose reduction techniques were utilized for this examination: 1. Automated exposure control 2. Adjustment of the mA and/or kV according to patient size 3. Use of iterative reconstruction technique. Findings: No acute extra-axial or parenchymal hemorrhage is identified. There is no significant intra-axial mass effect, midline shift, or extra-axial fluid collection. The valero-white differentiation of the major vascular territories is preserved. Ventricular size is stable. There is again mild/moderate generalized supratentorial atrophy somewhat greater of the frontal lobes. The mastoid air cells and the visualized paranasal sinuses are aerated. No acute calvarial abnormality is identified. There is atherosclerotic calcification of the carotid siphons bilaterally. Impression: 1. No acute intracranial abnormality is identified. If there is concern for evolving or acute ischemia, followup CT or MRI could be beneficial. There is again supratentorial atrophy. Electronically signed by: Boston Short MD (10/04/2016 10:37 PM)
[2016-10-04] MEDS: ACETAMINOPHEN 325 MG TABLET. PO PRN (23:23)
[2016-10-04 23:24] VITALS: BP 129/58
[2016-10-05] VITALS (8 sets, daily range): BP systolic 128–200; BP diastolic 47–84
[2016-10-05] MEDS: ENALAPRILAT 2.5 MG/2 ML VIAL. IV SCH ×3 (00:05→11:55)
[2016-10-05] MEDS: fentaNYL PF VIAL 100 MCG/2 ML VIAL IV PRN ×6 (00:30→20:11)
--- NOTE | 2016-10-05 04:19 | ACF ---
Admission Forms Criteria HYPERTENSION Clinical Indications for Admission to Inpatient Care ( Place "X" for any and all applicable criteria): Admission is indicated for ANY ONE of the following(1)(2)(3)(4): [ ]I. Hypertensive emergency, with evidence of acute and progressing target organ disease as indicated by ANY ONE of the following: [ ]a) Hypertensive encephalopathy (eg, confusion, altered mental status) [ ]b) Cerebral infarction [ ]c) Intracranial hemorrhage [ ]d) Myocardial ischemia or infarction [ ]e) Pulmonary edema [ ]f) Aortic dissection [ ]g) Seizure [ ]h) Acute renal insufficiency [ ]i) Papilledema [ ]j) Microangiopathic hemolytic anemia [ ]II. Adrenergic crisis (eg, severe hypertension due to pheochromocytoma crisis, cocaine or amphetamine intoxication, or clonidine withdrawal) [X ]III. Severe hypertension (SBP greater than 180 mmHg or DBP greater than 110 mmHg or greater than the 95th percentile for age, gender, and height in pediatric patients) that cannot be controlled (eg, to SBP less than 160 mmHg and DBP less than 100 mmHg in adults) by treatment with oral medication in emergency department or observation care Extended stay beyond goal length of stay may be needed for(11)(12)(13): [ ]a) Persistent hypertensive encephalopathy [ ]b) Continuation of pulmonary edema [ ]c) Recurring or persistent severe hypertension [ ]d) Target organ damage (eg, angina, stroke, aortic dissection) [ ]e) Associated renal insufficiency The original [employer] [facility] content created by [employer] has been revised. The portions of the content which have been revised are identified through the use of italic text or in bold, and [facility] has neither reviewed nor approved the modified material. All other unmodified content is copyright [facility]. Please see references footnoted in the original [employer] [facility] edition 2016 Admission Criteria Met?: Yes AG ROSA October 05, 2016 04:19
[2016-10-05 04:27] LABS: BASO # 0.1 x10^3/uL (0.0-0.2); BASO % 1 % (0-3); EOS % 2 % (0-3); HEMATOCRIT 35.5 % (36.0-47.0); HEMOGLOBIN 11.9 g/dL (12.0-15.5); LYMPH # 2.3 x10^3/uL (1.0-4.8); LYMPH % 37 % (24-48); MEAN CORPUSCULAR HEMOGLOBIN 31 pg (25-35); MEAN CORPUSCULAR HGB CONC 34 g/dL (31-37); MEAN CORPUSCULAR VOLUME 93 fL (79-100); MONO % 11 % (0-9); NEUT % 49 % (31-73); PLATELET COUNT 231 x10^3/uL (140-400); RED BLOOD COUNT 3.83 x10^6/uL (3.50-5.40); RED CELL DISTRIBUTION WIDTH 14.4 % (11.5-14.5); WHITE BLOOD COUNT 6.2 x10^3/uL (4.0-11.0)
[2016-10-05 04:57] LABS: CALCIUM 9.1 mg/dL (8.5-10.1); CREATININE 1.1 mg/dL (0.6-1.0); GFR 49.5; POTASSIUM 3.7 mmol/L (3.5-5.1)
--- NOTE | 2016-10-05 07:12 | EKG ---
[facility] [address] [place] [address] Test Date: 2016-10-04 Test Time: 21:07:28 Pat Name: FELI ROSEN Department: Room: [facility] Gender: F Phys Asst: : 1950 Requested By: MARIA ESTHER LAMBERT Order Number: [id number] Reading MD: Figueroa Mitchell Measurements Intervals Cameron Rate: 64 P: DC: QRS: 43 QRSD: 82 T: 44 QT: 396 QTc: 413 Interpretive Statements SUSPECT SINUS RHYTHM WITH 1ST DEGREE AVB CANNOT RULE OUT JUNCTIONAL RHYTHM Electronically Signed On 10-05-2016 10:45:18 CDT by Figueroa Mitchell
--- NOTE | 2016-10-05 08:08 | RAD ---
Indication dizziness weakness hypertension protocol study. A single view chest was obtained and is compared to an examination 3 days earlier. Postoperative changes are noted. Heart size is at the upper limits of normal. There is no congestive heart failure. A focal infiltrate is not seen. A significant change compared to the previous exam is not apparent. IMPRESSION: No acute finding. No significant change
[2016-10-05] MEDS: ACETAMINOPHEN 325 MG TABLET. PO PRN (09:01)
[2016-10-05] MEDS ORDERED: ATENOLOL 25 MG TABLET. PO SCH (10:00)
[2016-10-05] MEDS: CLOPIDOGREL BISULFATE 75 MG TABLET PO SCH (10:01)
[2016-10-05] MEDS: PANTOPRAZOLE 40 MG TABLET.DR. PO SCH (10:01)
[2016-10-05] MEDS: ASPIRIN ENTERIC COATED 81 MG TABLET.DR. PO SCH (10:01)
[2016-10-05] MEDS: LISINOPRIL 20 MG TABLET PO SCH (10:02)
[2016-10-05] MEDS: oxyCODONE ER 10 MG TAB.ER.12H PO SCH ×2 (10:03→20:10)
--- NOTE | 2016-10-05 10:42 | PDOC ---
Provider Note Provider Note Pt seen.H&P dictated. #[id number] RONNELL CALDERON MD October 05, 2016 10:42
[2016-10-05] MEDS: LORazepam 0.5 MG TABLET PO PRN ×2 (12:12→20:10)
[2016-10-05] MEDS: oxyCODONE IR 5 MG TABLET PO PRN ×2 (12:46→17:24)
--- NOTE | 2016-10-05 12:52 | PDOC2 ---
CARDIAC CONSULT DATE OF CONSULT Date of Consult DATE: 10/05/16 TIME: 12:50 REASON FOR CONSULT Reason for Consult: malignant HTN REFERRING PHYSICIAN Referring Physician: Dr. Bear Solis SOURCE Source: Chart review, Patient HISTORY OF PRESENT ILLNESS HISTORY OF PRESENT ILLNESS 66 year old admitted 10/01/2016 and discharged 10/02/2016 for hyponatremia and renal insufficiency. Returned to ER on 10/04/2016 with c/o dizziness, headache and weakness. Denies diplopia, chest pain, dyspnea but then with c/o of inframammary pain that worsens when she pushes on it. Also notes intermittent diaphoresis. SBP was > 200 at home and 200 - 211 in ER. Currently with headache and has received IV and p.o. narcotics. Reason for Visit: HTN PAST MEDICAL HISTORY Cardiovascular: CAD (CAD with previous CABG X 2), HTN, Hyperlipidemia, Other ( carotid stenosis with previous stents ) Pulmonary: Bronchitis, Pneumonia CENTRAL NERVOUS SYSTEM: Other (none) GI: GERD Heme/Onc: No pertinent hx Hepatobiliary: No pertinent hx Psych: Anxiety, Bipolar, Depression Musculoskeletal: Osteoarthritis Rheumatologic: No pertinent hx Infectious disease: No pertinent hx ENT: No pertinent hx Renal/: No pertinent hx Endocrine: Hyperthyroidism PAST SURGICAL HISTORY Past Surgical History: CABG (X 2), Total hip replacement (right), Other ( bilateral carotid stents; right shoulder) FAMILY HISTORY Family History: Other (non-contributory) SOCIAL HISTORY Smoke: <1 pack per day ALCOHOL: none Lives: with Family CURRENT MEDICATIONS CURRENT MEDICATIONS Current Medications Medications (Trade) Dose Ordered Sig/Sherrell Route PRN Reason Start Time Stop Time Status Last Admin Dose Admin Fentanyl Citrate (Fentanyl 2ml Vial) 50 mcg PRN Q15MIN PRN IV PAIN GREATER THAN 3/10 10/04/16 21:30 10/05/16 21:29 10/05/16 05:33 Sodium Chloride 1,000 ml @ 1,000 mls/hr Q1H IV 10/04/16 21:16 10/04/16 22:15 DC 10/04/16 21:36 Ondansetron HCl (Zofran) 4 mg 1X ONCE IV 10/04/16 21:30 10/04/16 21:31 DC 10/04/16 21:37 Meclizine HCl (Antivert) 25 mg 1X ONCE PO 10/04/16 21:30 10/04/16 21:31 DC 10/04/16 21:39 Hydralazine HCl (Apresoline) 10 mg 1X ONCE IVP 10/04/16 22:30 10/04/16 22:31 DC 10/04/16 22:16 Fentanyl Citrate (Fentanyl 2ml Vial) 50 mcg PRN Q2HR PRN IV SEVERE PAIN 10/04/16 22:30 10/05/16 22:29 10/05/16 07:55 Acetaminophen (Tylenol) 650 mg PRN Q4HRS PRN PO FEVER 10/04/16 22:30 10/05/16 22:29 10/05/16 09:01 Enalaprilat (Vasotec) 2.5 mg Q6HRS IV 10/05/16 00:00 10/05/16 05:33 Aspirin (Ecotrin) 81 mg DAILY PO 10/05/16 10:00 10/05/16 10:01 Atenolol (Tenormin) 25 mg DAILY PO 10/05/16 10:00 10/05/16 10:03 Clopidogrel Bisulfate (Plavix) 75 mg DAILY PO 10/05/16 10:00 10/05/16 10:01 Lisinopril (Prinivil) 20 mg DAILY PO 10/05/16 10:00 10/05/16 10:02 Oxycodone HCl (OxyCONTIN) 10 mg BID PO 10/05/16 10:00 10/05/16 10:03 Pantoprazole Sodium (Protonix) 40 mg DAILYAC PO 10/05/16 10:00 10/05/16 10:01 Oxycodone HCl (Roxicodone) 10 mg PRN Q4HRS PRN PO PAIN 10/05/16 09:45 10/05/16 12:46 Lorazepam (Ativan) 0.5 mg PRN Q8HRS PRN PO ANXIETY / AGITATION 10/05/16 12:00 10/05/16 12:12 ALLERGIES ALLERGIES: Coded Allergies: No Known Drug Allergies (Unverified , 10/01/16) PHYSICAL EXAM General: Alert, Oriented X3, Cooperative, No acute distress HEENT: Atraumatic, PERRLA Lungs: Clear to auscultation Heart: Regular rate, Normal S1, Normal S2, No murmurs Abdomen: Normal bowel sounds, Soft Extremities: No cyanosis, No edema Skin: No breakdown Neuro: Normal speech Psych/Mental Status: Mental status NL, Mood NL MUSCULOSKELETAL: Osteoarthritic changes both hands VITALS VITALS Vital Signs Date Time Temp Pulse Resp B/P (MAP) Pulse Ox O2 Delivery O2 Flow Rate FiO2 10/05/16 12:46 18 Room Air 10/05/16 11:55 84 142/55 10/05/16 11:00 96.6 95 96.6 LABS Lab: Laboratory Tests Test 10/04/16 20:40 10/04/16 21:30 10/05/16 04:00 White Blood Count 7.2 x10^3/uL (4.0-11.0) 6.2 x10^3/uL (4.0-11.0) Red Blood Count 4.12 x10^6/uL (3.50-5.40) 3.83 x10^6/uL (3.50-5.40) Hemoglobin 13.0 g/dL (12.0-15.5) 11.9 g/dL (12.0-15.5) Hematocrit 38.1 % (36.0-47.0) 35.5 % (36.0-47.0) Mean Corpuscular Volume 93 fL (79-100) 93 fL (79-100) Mean Corpuscular Hemoglobin 32 pg (25-35) 31 pg (25-35) Mean Corpuscular Hemoglobin Concent 34 g/dL (31-37) 34 g/dL (31-37) Red Cell Distribution Width 14.0 % (11.5-14.5) 14.4 % (11.5-14.5) Platelet Count 281 x10^3/uL (140-400) 231 x10^3/uL (140-400) Neutrophils (%) (Auto) 69 % (31-73) 49 % (31-73) Lymphocytes (%) (Auto) 21 % (24-48) 37 % (24-48) Monocytes (%) (Auto) 9 % (0-9) 11 % (0-9) Eosinophils (%) (Auto) 1 % (0-3) 2 % (0-3) Basophils (%) (Auto) 1 % (0-3) 1 % (0-3) Neutrophils # (Auto) 5.0 x10^3uL (1.8-7.7) 3.0 x10^3uL (1.8-7.7) Lymphocytes # (Auto) 1.5 x10^3/uL (1.0-4.8) 2.3 x10^3/uL (1.0-4.8) Monocytes # (Auto) 0.6 x10^3/uL (0.0-1.1) 0.7 x10^3/uL (0.0-1.1) Eosinophils # (Auto) 0.0 x10^3/uL (0.0-0.7) 0.1 x10^3/uL (0.0-0.7) Basophils # (Auto) 0.1 x10^3/uL (0.0-0.2) 0.1 x10^3/uL (0.0-0.2) Sodium Level 133 mmol/L (136-145) 136 mmol/L (136-145) Potassium Level 3.9 mmol/L (3.5-5.1) 3.7 mmol/L (3.5-5.1) Chloride Level 93 mmol/L (98-107) 99 mmol/L (98-107) Carbon Dioxide Level 32 mmol/L (21-32) 32 mmol/L (21-32) Anion Gap 8 (6-14) 5 (6-14) Blood Urea Nitrogen 17 mg/dL (7-20) 13 mg/dL (7-20) Creatinine 1.2 mg/dL (0.6-1.0) 1.1 mg/dL (0.6-1.0) Estimated GFR (Cockcroft-Gault) 44.8 49.5 BUN/Creatinine Ratio 14 (6-20) Glucose Level 108 mg/dL (70-99) 94 mg/dL (70-99) Calcium Level 10.2 mg/dL (8.5-10.1) 9.1 mg/dL (8.5-10.1) Magnesium Level 1.8 mg/dL (1.8-2.4) Total Bilirubin 0.4 mg/dL (0.2-1.0) Aspartate Amino Transf (AST/SGOT) 24 U/L (15-37) Alanine Aminotransferase (ALT/SGPT) 18 U/L (14-59) Alkaline Phosphatase 97 U/L (46-116) Total Protein 7.6 g/dL (6.4-8.2) Albumin 3.9 g/dL (3.4-5.0) Albumin/Globulin Ratio 1.1 (1.0-1.7) Urine Collection Type Unknown Urine Color Yellow Urine Clarity Clear Urine pH 6.0 Urine Specific Downs 1.015 Urine Protein Negative mg/dL (NEG-TRACE) Urine Glucose (UA) Negative mg/dL (NEG) Urine Ketones (Stick) Negative mg/dL (NEG) Urine Blood Negative (NEG) Urine Nitrite Negative (NEG) Urine Bilirubin Negative (NEG) Urine Urobilinogen Dipstick 0.2 mg/dL (0.2 mg/dL) Urine Leukocyte Esterase Negative (NEG) Urine RBC 1-2 /HPF (0-2) Urine WBC 1-4 /HPF (0-4) Urine Squamous Epithelial Cells Few /LPF Urine Bacteria 0 /HPF (0-FEW) Urine Hyaline Casts Moderate /HPF Urine Mucus Slight /LPF IMAGES IMAGES no acute changes EKG EKG no acute changes - SR with 1st degree AVB ECHOCARDIOGRAM ECHOCARDIOGRAM 11/2015: TTE: Left ventricle systolic function is normal. The Ejection Fraction is 50-55%. There is normal LV segmental wall motion. Septal motion suggestive of intraventricular conduction delay. No significant valvular disease. HEART CATH HEART CATH 04/14/2017: FINDINGS 1. Hemodynamics: Left ventricular end-diastolic pressure 7 mmHg. No pullback gradient across the aortic valve. 2. Left ventriculography: Subselective ontrast injections showed the patient has normal left ventricular systolic function. Recommend echocardiogram for definitive evaluation. 3. Coronary angiography: a. The left main coronary artery arose from the left sinus of Valsalva, gave rise to the left anterior descending and left circumflex arteries and did not show any significant stenosis. b. The left anterior descending artery showed 100% occlusion in the midsegment. c. The left circumflex artery did not show any significant stenosis. d. The right coronary artery was a large and dominant vessel arising from the right sinus of Valsalva that showed 30% stenosis in the proximal segment and 40 % stenosis in the midsegment. No critical lesions were noted. e. The left internal mammary artery graft to the left anterior descending artery was widely patent. Distal to the anastomosis, the teller left anterior descending artery did not show any significant stenosis. f. The saphenous vein graft to the diagonal branch did not show any significant stenosis. Conclusion 1. Coronary artery disease s/p coronary artery bypass surgery with patent left internal mammary artery graft to the left anterior descending artery and patent saphenous vein graft to the diagonal branch. The right coronary and left circumflex artery were not grafted and did not show any significant stenosis. 2. Probably normal left ventricle systolic function - recommend echocardiogram for definitive evaluation. Recommendations Medical management ASSESSMENT/PLAN ASSESSMENT/PLAN 1. malignant HTN stop atenolol and convert to carvedilol may need to d/c ACEI with persistent hyponatremia echo to evaluate LV function prn hydralazine 2. hyponatremia per primary service 3. CAD with previous CABG grafts patent on cath 2014 continue secondary prevention 4. HLD continue statin therapy 5. carotid disease bilateral stents CDU last year without significant findings Problems: KAMALJIT CORONEL APRN October 05, 2016 12:52
[2016-10-05] MEDS: hydrALAZINE 20 MG/ML VIAL. IVP PRN ×2 (15:49→20:12)
[2016-10-05] MEDS: CARVEDILOL 12.5 MG TABLET. PO SCH (17:08)
--- NOTE | 2016-10-05 17:16 | HP ---
ADMIT DATE: 10/05/2016 LOCATION: 510. REASON FOR ADMISSION TO THE HOSPITAL: Malignant hypertension, headache, and chest pain. HISTORY OF PRESENT ILLNESS: The patient is a 66-year-old female patient who was recently discharged from the hospital on Tuesday. She was observed overnight for hyponatremia, improved with fluids, and we discontinued Lexapro. She was doing relatively well. She was having a lot of headache, chest pain, came to Emergency Room. Blood pressure was high, more than 200. CT head was negative, was given IV hydralazine. It improved, was admitted to the hospital. air sampling and monitoring was placed. PAST MEDICAL HISTORY: Coronary artery disease, had a CABG x2, hypertension, and carotid stenosis. PAST SURGICAL HISTORY: Carotid stents and hip replacement, right. ALLERGIES: No known drug allergies. SOCIAL HISTORY: One pack per daily. Denies alcohol. Denies any street drugs. MEDICATIONS: She is on aspirin 81 mg, atenolol 25 mg, Plavix 75 mg, lisinopril 20 mg, oxycodone 10 mg, Protonix 40 mg, Ativan 0.5, and recently discontinued Lexapro secondary to low sodium. FAMILY HISTORY: Positive for heart disease and strokes. REVIEW OF SYMPTOMS: CARDIAC: Chest pain is much better. She still has some discomfort. GASTROINTESTINAL: No nausea. Rest of her system was reviewed. Had some headaches. PHYSICAL EXAMINATION: GENERAL: The patient is not in any distress. VITAL SIGNS: Temperature 98, pulse 65, respirations 18, blood pressure 219/97, and 97% on room air. HEENT: Head is atraumatic. Pupils are equal. Oral cavity, bad dentition. NECK: Scars of carotid surgeries. CHEST: Symmetrical, scar of heart surgery, bypass. CARDIOVASCULAR: S1, S2. LUNGS: Clear. ABDOMEN: Soft. No mass palpable. EXTERNAL GENITALIA: No Rodrigues. RECTAL: Deferred. EXTREMITIES: No calf tenderness, no edema. NEUROLOGIC: Cranial nerves intact. Power 5/5 in all extremities. LABORATORY DATA: Shows a white count of 7, hemoglobin 13, and platelets 281. Electrolytes show sodium 133, potassium 3.9, chloride 93, bicarbonate 32, BUN 17, creatinine 1.2, and glucose 108. LFTs were normal. Urine was negative. CT head was negative for any bleed or tumors. Chest x-ray was negative. EKG done, report is pending. FINAL IMPRESSION: 1. Malignant hypertension. 2. Coronary artery disease, history of bypass surgery. 3. History of bilateral carotid surgeries. 4. Smoking history. 5. History of anxiety, depression, and chronic pain. PLAN: At this time, admit to hospital. Cardiology is consulted. Cardiac enzymes, EKG, IV hydralazine, resume home medications and see how the patient's condition improves. We will get an echocardiogram if not done in last 6 months. RONNELL CALDERON MD DR: CARIN/honey JOB#: [id number] / [id number]
[2016-10-05] MEDS: ZOLPIDEM 5 MG TABLET. PO PRN (20:10)
[2016-10-05] MEDS ORDERED: ATORVASTATIN CALCIUM 10 MG TABLET. PO SCH (21:00)
[2016-10-06] MEDS: oxyCODONE IR 5 MG TABLET PO PRN ×4 (01:54→19:40)
[2016-10-06 03:08] VITALS: BP 148/63
[2016-10-06 05:20] LABS: CHOLESTEROL/HDL RATIO 3.1
[2016-10-06 07:00] VITALS: BP 168/70
[2016-10-06] MEDS: PANTOPRAZOLE 40 MG TABLET.DR. PO SCH (07:22)
[2016-10-06] MEDS: CLOPIDOGREL BISULFATE 75 MG TABLET PO SCH (09:10)
[2016-10-06] MEDS: oxyCODONE ER 10 MG TAB.ER.12H PO SCH ×2 (09:10→20:26)
[2016-10-06] MEDS: ASPIRIN ENTERIC COATED 81 MG TABLET.DR. PO SCH (09:11)
[2016-10-06] MEDS: LISINOPRIL 20 MG TABLET PO SCH (09:11)
[2016-10-06] MEDS: CARVEDILOL 12.5 MG TABLET. PO SCH ×2 (09:12→18:43)
--- NOTE | 2016-10-06 09:51 | PDOC ---
PROGRESS NOTES Subjective Subjective heart burn today Objective Objective Vital Signs Date Time Temp Pulse Resp B/P (MAP) Pulse Ox O2 Delivery O2 Flow Rate FiO2 10/06/16 09:12 67 168/70 10/06/16 09:10 94 Room Air 10/06/16 07:24 20 10/06/16 07:00 97.8 97.8 Intake and Output 10/06/16 07:00 Intake Total 1430 ml Balance 1430 ml Intake Oral 1430 ml # Voids 8 # Bowel Movements 1 Physical Exam Abdomen: Normal bowel sounds, Soft Heart: Regular rate, Normal S1, Normal S2, No murmurs Extremities: No cyanosis, No edema General: Alert, Oriented X3, Cooperative, No acute distress HEENT: Atraumatic, PERRLA Lungs: Clear to auscultation MUSCULOSKELETAL: Osteoarthritic changes both hands Neuro: Normal speech Psych/Mental Status: Mental status NL, Mood NL Skin: No breakdown Diagnosis Problem List Problems Medical Problems: (1) Accelerated hypertension Status: Acute (2) Confusion Status: Acute (3) Generalized weakness Status: Acute (4) Hyponatremia Status: Acute Assessment Assessment Problems Medical Problems: (1) Accelerated hypertension Status: Acute (2) Confusion Status: Acute (3) Generalized weakness Status: Acute (4) Hyponatremia Status: Acute FINAL IMPRESSION: 1. Malignant hypertension. 2. Coronary artery disease, history of bypass surgery. 3. History of bilateral carotid surgeries. 4. Smoking history. 5. History of anxiety, depression, and chronic pain. 6.GERD PLAN: ECHO today. Gi consult ,will need EGD. abd sono. carotid doppler. labs ok. At this time, admit to hospital. Cardiology is consulted. Cardiac enzymes, EKG, IV hydralazine, resume home medications and see how the patient's condition improves. We will get an echocardiogram if not done in last 6 months. Problems: Plan Plan of Care Problems Medical Problems: (1) Accelerated hypertension Status: Acute (2) Confusion Status: Acute (3) Generalized weakness Status: Acute (4) Hyponatremia Status: Acute Comment Review of Relevant I have reviewed the following items daniela (where applicable) has been applied. Labs Laboratory Tests Test 10/06/16 03:25 Triglycerides Level 78 mg/dL (0-150) Cholesterol Level 178 mg/dL (0-200) LDL Cholesterol, Calculated 104 mg/dL (0-100) VLDL Cholesterol, Calculated 16 mg/dL (0-40) Non-HDL Cholesterol Calculated 120 mg/dL (0-129) HDL Cholesterol 58 mg/dL (40-60) Cholesterol/HDL Ratio 3.1 Medications Current Medications Aspirin (Ecotrin) 81 mg DAILY PO Last administered on 10/06/16 09:11; Start at 10:00 Atenolol (Tenormin) 25 mg DAILY PO Last administered on 10/05/16 10:03; Start 10/05/16 at 10:00; Stop 10/05/16 at 13:10; Status DC Atorvastatin Calcium (Lipitor) 10 mg HS PO Last administered on 10/05/16 20:10 ; Start 10/05/16 at 21:00 Carvedilol (Coreg) 12.5 mg BIDWMEALS PO Last administered on 10/06/16 09:12; Start 10/05/16 at 17:00 Clopidogrel Bisulfate (Plavix) 75 mg DAILY PO Last administered on 10/06/16 09 :10; Start 10/05/16 at 10:00 Lisinopril (Prinivil) 20 mg DAILY PO Last administered on 10/06/16 09:11; Start 10/05/16 at 10:00 Lorazepam (Ativan) 0.5 mg PRN Q8HRS PRN PO ANXIETY / AGITATION Last administered on 10/05/16 20:10; Start 10/05/16 at 12:00 Oxycodone HCl (OxyCONTIN) 10 mg BID PO Last administered on 10/06/16 09:10; Start 10/05/16 at 10:00 Pantoprazole Sodium (Protonix) 40 mg DAILYAC PO Last administered on 10/06/16 07:22; Start 10/05/16 at 10:00 Vitals/I & O Vital Sign - Last 24 Hours 10/05/16 10/05/16 10/05/16 10/05/16 10:02 10:03 10:03 11:00 Temp 96.6 96.6 Pulse 67 67 84 Resp 18 18 B/P (MAP) 171/57 171/57 142/55 (84) Pulse Ox 95 O2 Delivery Room Air Room Air 10/05/16 10/05/16 10/05/16 10/05/16 11:55 12:46 13:46 15:00 Temp 97.7 97.7 Pulse 84 68 Resp 18 18 22 B/P (MAP) 142/55 200/84 (122) Pulse Ox 96 O2 Delivery Room Air Room Air 10/05/16 10/05/16 10/05/16 10/05/16 15:24 15:49 15:54 16:56 Pulse 62 59 Resp 18 18 B/P (MAP) 200/84 146/56 (86) O2 Delivery Room Air 10/05/16 10/05/16 10/05/16 10/05/16 17:08 17:24 18:16 19:00 Temp 96.8 96.8 Pulse 67 70 Resp 18 18 20 B/P (MAP) 146/56 171/59 (96) Pulse Ox 96 O2 Delivery Room Air Room Air 10/05/16 10/05/16 10/05/16 10/05/16 20:01 20:10 20:11 20:12 Pulse 69 69 Resp 18 18 B/P (MAP) 157/59 (91) 157/59 Pulse Ox 96 96 O2 Delivery Room Air Room Air 10/05/16 10/05/16 10/06/16 10/06/16 20:41 23:00 00:10 01:54 Temp 97.9 97.9 Pulse 65 Resp 20 18 B/P (MAP) 128/47 (74) Pulse Ox 96 91 91 91 O2 Delivery Room Air Room Air Room Air Room Air 10/06/16 10/06/16 10/06/16 10/06/16 02:54 03:08 07:00 07:24 Temp 98.6 97.8 98.6 97.8 Pulse 63 67 Resp 20 20 20 B/P (MAP) 148/63 (91) 168/70 (102) Pulse Ox 91 92 94 O2 Delivery Room Air Room Air Room Air Room Air 10/06/16 10/06/16 10/06/16 09:10 09:11 09:12 Pulse 67 67 B/P (MAP) 168/70 168/70 Pulse Ox 94 O2 Delivery Room Air Intake and Output 10/05/16 10/05/16 10/06/16 15:00 23:00 07:00 Intake Total 240 ml 300 ml 890 ml Balance 240 ml 300 ml 890 ml RONNELL CALDERON MD October 06, 2016 09:51
[2016-10-06 11:00] VITALS: BP 170/60
--- NOTE | 2016-10-06 11:44 | PDOC2 ---
GI CONSULT Reason For Consult: GERD, needs EGD HPI: HPI: 66 y/o female admitted w/ accelerated HTN, THOMASON, chest pain, and dizziness. Has previously seen Dr. Oquendo for non-cardiac chest pain/dyspepsia and had an EGD in 05/2015 which showed mild reflux esophagitis. PPI QD was recommended, along w/ outpt screening colonoscopy. Per chart and RN, she has complained of heartburn today. To me she reports heartburn is much less bothersome than it has been in the past. She did not continue PPI after EGD last year for this reason. She has also not had a colonoscopy yet. She's a poor historian, but upon further questioning admits to weight loss " over the years," but perhaps more significant recently. She doesn't have much of an appetite which she attributes to increased anxiety, apparently was out of medication at home for this. Usually has LLQ pain upon waking which is attributed to only being able to sleep on her back. She has occasional nausea and has vomited once recently. No dysphagia. Denies diarrhea, constipation, hematochezia, melena, and hematemesis. No NSAIDs. Takes hydrocodone frequently at home. BM charted today, she tells me "a couple days ago." Per RN , not eating much, currently NPO for imaging. PMH: PMH: CAD, CT, HTN, HLD, TIA, carotid artery stenosis, bronchitis, pneumonia, recent hyponatremia, anxiety/dperession, bipolar, OA, hyperthyroidism, CABG x 2, carotid endarterectomies, right shoulder surgery, , right hip surgery FH: Family History: CAD Social History: Smoke: <1 pack per day ALCOHOL: none Drugs: None ROS: GEN: Denies fevers, chills, sweats HEENT: Denies blurred vision, sore throat CV: +CP RESP: Denies shortness of air, cough GI: Per HPI : Denies hematuria, dysuria ENDO: +weight loss NEURO: +dizziness +anxiety MSK: +arthritis pain SKIN: Denies jaundice, pruritus Vitals: Vitals: Vital Signs Date Time Temp Pulse Resp B/P (MAP) Pulse Ox O2 Delivery O2 Flow Rate FiO2 10/06/16 09:12 67 168/70 10/06/16 09:10 94 Room Air 10/06/16 08:24 20 10/06/16 07:00 97.8 97.8 Labs: Labs: Laboratory Tests Test 10/06/16 03:25 Triglycerides Level 78 mg/dL (0-150) Cholesterol Level 178 mg/dL (0-200) LDL Cholesterol, Calculated 104 mg/dL (0-100) VLDL Cholesterol, Calculated 16 mg/dL (0-40) Non-HDL Cholesterol Calculated 120 mg/dL (0-129) HDL Cholesterol 58 mg/dL (40-60) Cholesterol/HDL Ratio 3.1 Allergies: Coded Allergies: No Known Drug Allergies (Unverified , 10/01/16) Medications: Current Medications Medications (Trade) Dose Ordered Sig/Sherrell Route PRN Reason Start Time Stop Time Status Last Admin Dose Admin Atorvastatin Calcium (Lipitor) 10 mg HS PO 10/05/16 21:00 10/06/16 11:00 DC 10/05/16 20:10 Lorazepam (Ativan) 0.5 mg PRN Q8HRS PRN PO ANXIETY / AGITATION 10/05/16 12:00 10/05/16 20:10 Carvedilol (Coreg) 12.5 mg BIDWMEALS PO 10/05/16 17:00 10/06/16 11:00 DC 10/06/16 09:12 Imaging: Imaging: CXR 10/04/16 IMPRESSION: No acute finding. No significant change. Head CT 10/04/16 Impression: 1. No acute intracranial abnormality is identified. If there is concern for evolving or acute ischemia, followup CT or MRI could be beneficial. There is again supratentorial atrophy. PE: GEN: NAD HEENT: Atraumatic, PERRL LUNGS: CTAB anteriorly HEART: S1S2 ABD: NABS, S/ND, LLQ to suprapubic discomfort EXTREMITY: No edema SKIN: No rashes, no jaundice NEURO/PSYCH: A & O 3 A/P: A/P: Decreased appetite, weight loss -difficult to say over what period of time Reflux esophagitis -mild on EGD in 05/2015 -has not continued PPI -tells me GERD symptoms are not bothersome frequently (story seems to change) LLQ pain CRC screen -no previous colonoscopy HTN, CAD, THOMASON -per cardiology, primary Anemia -- Await abd ultrasound. Continue PPI. Will add Tums PRN and check iron studies. Not sure she needs another EGD at this point, last was performed 1.5 years ago. ?GES Does need a screening colonoscopy, particularly in light of weight loss and LLQ pain. This can probably be performed as an outpatient. Dr. Oquendo is out today, will review w/ Dr. Krause. FRITZ COUCH October 06, 2016 11:44
[2016-10-06] MEDS ORDERED: CALCIUM CARBONATE 500 MG TAB.CHEW PO PRN (11:45)
[2016-10-06 12:11] LABS: % SAT IRON 34 % (15-34); IRON,SERUM 98 ug/dL (50-170)
--- NOTE | 2016-10-06 12:25 | PDOC ---
CARDIO Progress Notes Date and Time Date of Service 10/06/2016 Time of Evaluation 1222 Subjective Subjective: No Chest Pain, No shortness of breath, No Palpitations, No Dizziness, Other (feels better today; headache decreased) Vitals Vitals Vital Signs Date Time Temp Pulse Resp B/P (MAP) Pulse Ox O2 Delivery O2 Flow Rate FiO2 10/06/16 11:00 97.8 63 20 170/60 (96) 95 Room Air 97.8 Weight Weight [ ] Input and Output Intake and Output Intake and Output 10/06/16 07:00 Intake Total 1430 ml Balance 1430 ml Intake Oral 1430 ml # Voids 8 # Bowel Movements 1 Laboratory Labs Laboratory Tests Test 10/06/16 03:25 Iron Level 98 ug/dL (50-170) Total Iron Binding Capacity 286 ug/dL (250-450) Iron Saturation 34 % (15-34) Triglycerides Level 78 mg/dL (0-150) Cholesterol Level 178 mg/dL (0-200) LDL Cholesterol, Calculated 104 mg/dL (0-100) VLDL Cholesterol, Calculated 16 mg/dL (0-40) Non-HDL Cholesterol Calculated 120 mg/dL (0-129) HDL Cholesterol 58 mg/dL (40-60) Cholesterol/HDL Ratio 3.1 Physical Exam HEENT: Neck Supple W Full Motion Chest: Symmetric LUNGS: Clear to Auscultation Heart: S1S2, RRR, other (tele: SB/SR) Abdomen: Soft N/T Extremities: No Edema Neurology: alert, oriented, follow commands Assessment Assessment 1. malignant HTN some improved with change to carvedilol - increase to maximal dosage may need to d/c ACEI with persistent hyponatremia echo to evaluate LV function - remains pending prn hydralazine 2. hyponatremia per primary service 3. CAD with previous CABG grafts patent on cath 2014 continue secondary prevention 4. HLD LDLs > 100 continue statin therapy - increase to high dose statin with CAD and PVD history 5. carotid disease bilateral stents CDU last year without significant findings 6. heartburn/GERD for scoping later today [employer] October 06, 2016 12:25
[2016-10-06 15:00] VITALS: BP 154/67
[2016-10-06] MEDS: LORazepam 0.5 MG TABLET PO PRN ×2 (15:23→22:10)
--- NOTE | 2016-10-06 16:45 | CARD ---
APPROVED REPORT EXAM: Two-dimensional and M-mode echocardiogram with Doppler and color Doppler. Other Information Quality : Average Rhythm : NSR INDICATION Hypertension/HCVD 2D DIMENSIONS RVDd2.8 (2.9-3.5cm)Left Atrium(2D)2.7 (1.6-4.0cm) IVSd1.2 (0.7-1.1cm)Aortic Root(2D)2.5 (2.0-3.7cm) LVDd3.0 (3.9-5.9cm)LVOT Diameter1.9 (1.8-2.4cm) PWd1.2 (0.7-1.1cm)LVDs2.3 (2.5-4.0cm) FS (%) 23.7 %SV16.5 ml Aortic Valve AoV Peak Jaison.103.3cm/sAoV VTI23.7cm AO Peak GR.4.3mmHgLVOT Peak Jaison.78.6cm/s LVOT VTI 18.05cmAO Mean GR.2mmHg RIYA (VMAX)2.03he8FZF (VTI)2.18cm2 Mitral Valve MV E Maywtehi61.1cm/sMV DECEL [id number] MV A Clfqbahi54.6cm/sMV WEL60ae E/A Ratio0.9MV A [id number] MVA (PHT)2.47cm2 TDI E/Lateral E'11.2E/Medial E'11.2 Pulmonary Valve PV Peak Piqanqya715.0cm/sPV Peak Grad.5mmHg Tricuspid Valve TR P. Ohdwrwrh374qq/sRAP [id number] TR Peak Gr.43vuZbEYYN10vnBv LEFT VENTRICLE The left ventricle is normal size. There is normal left ventricular wall thickness. Left ventricle sy stolic function is normal. The Ejection Fraction is 50-55%. There is normal LV segmental wall motion. Septal motion consistent with post-operative state. The left ventricular diastolic function and fill ing is normal for age. There is no ventricular septal defect visualized. RIGHT VENTRICLE The right ventricle is normal size. The right ventricular systolic function is normal. ATRIA The left atrium size is normal. The right atrium size is normal. The interatrial septum is intact wit h no evidence for an atrial septal defect or patent foramen ovale as noted on 2-D or Doppler imaging. AORTIC VALVE The aortic valve is normal in structure and function. The aortic valve is trileaflet. Doppler and Col or Flow revealed no significant aortic regurgitation. There is no significant aortic valvular stenosi s. MITRAL VALVE The mitral valve is normal in structure and function. There is no mitral valve stenosis. Doppler and Color Flow revealed mild mitral regurgitation. TRICUSPID VALVE The tricuspid valve is normal in structure and function. Doppler and Color Flow revealed mild tricusp id regurgitation. The PA pressure was estimated at 25 mmHg. There is no tricuspid valve stenosis. PULMONIC VALVE The pulmonic valve is not well visualized. Doppler and Color Flow revealed no pulmonic valvular regur gitation. There is no pulmonic valvular stenosis. GREAT VESSELS The aortic root is normal in size. Normal pulmonary venous flow (Doppler). The IVC was not visualized . PERICARDIAL EFFUSION There is no evidence of significant pericardial effusion. Critical Notification Critical Value: No <Conclusion> The left ventricle is normal size. Left ventricle systolic function is normal. The Ejection Fraction is 50-55%. There is no significant aortic valvular stenosis. Doppler and Color Flow revealed no significant aortic regurgitation. Doppler and Color Flow revealed mild mitral regurgitation. Doppler and Color Flow revealed mild tricuspid regurgitation. The PA pressure was estimated at 25 mmHg.
[2016-10-06 19:00] VITALS: BP 165/55
[2016-10-06] MEDS: ATORVASTATIN CALCIUM 40 MG TABLET. PO SCH (20:24)
[2016-10-06] MEDS: ZOLPIDEM 5 MG TABLET. PO PRN (20:25)
[2016-10-06 23:00] VITALS: BP 157/60
[2016-10-07] VITALS (7 sets, daily range): BP systolic 116–160; BP diastolic 43–79
[2016-10-07] MEDS: oxyCODONE IR 5 MG TABLET PO PRN ×5 (04:47→22:19)
[2016-10-07] MEDS: CLOPIDOGREL BISULFATE 75 MG TABLET PO SCH (07:25)
[2016-10-07] MEDS: ASPIRIN ENTERIC COATED 81 MG TABLET.DR. PO SCH (07:27)
[2016-10-07] MEDS: oxyCODONE ER 10 MG TAB.ER.12H PO SCH ×2 (07:27→20:36)
[2016-10-07] MEDS: PANTOPRAZOLE 40 MG TABLET.DR. PO SCH (07:27)
[2016-10-07] MEDS: LISINOPRIL 20 MG TABLET PO SCH (07:34)
[2016-10-07] MEDS: CARVEDILOL 12.5 MG TABLET. PO SCH ×2 (07:35→17:57)
--- NOTE | 2016-10-07 08:53 | RAD ---
Bilateral duplex carotid sonography History: Confusion, headache, coronary artery disease, hypertension, carotid stenosis. Comparison: Carotid Doppler 11/26/2015. Duplex sonography of the cervical portion of both carotid arteries was performed. Findings: Right side: Peak systolic flow velocity of the CCA is 147 cm/sec. Peak systolic flow velocity of the ICA is 176 cm/sec. The ICA/CCA ratio is 1.20. Peak end diastolic flow velocity of the ICA is 32 cm/sec. The peak systolic velocity of the ECA is 98 cm/sec. Moderate calcified and noncalcified atherosclerotic plaquing is seen involving the right carotid system including somewhat irregular plaquing involving the distal common carotid artery. Left side: Peak systolic flow velocity of the CCA is 140 cm/sec. Peak systolic flow velocity of the ICA is 198 cm/sec. The ICA/CCA ratio is 1.41. Peak end diastolic flow velocity of the ICA is 44 cm/sec. Peak systolic flow velocity of the ECA is 136 cm/sec. Mild-moderate calcified and noncalcified atherosclerotic plaquing is seen involving the left carotid system. Vertebral arteries: Bilateral vertebral arteries demonstrate antegrade flow. Impression: 1. Both carotid systems demonstrate atherosclerotic plaquing. Both internal carotid arteries demonstrate elevated velocities corresponding to moderate (50-69%) luminal diameter stenosis. Note: Stenosis calculations for Doppler studies are derived from validated velocity criteria which are known to correlate with NASCET methodology of determining stenosis.
--- NOTE | 2016-10-07 09:04 | RAD ---
Complete abdominal ultrasound History: GERD. Comparison: None. Procedure: Transabdominal ultrasound images are obtained. Findings: Pancreas is not well evaluated. Liver is normal in echogenicity. No focal hepatic masses are identified. There is intrahepatic biliary dilatation. Small nonspecific calcification measuring 4 mm seen in the right hepatic lobe. Right hepatic lobe measures 15.8 cm Gallbladder demonstrates presence of large gallstone measuring 2.8 cm. No gallbladder wall thickening or pericholecystic fluid is identified. Common bile duct measures dilated at 11 mm in diameter. Spleen is unremarkable. Splenic length is 8.8 cm. Right kidney is normal in size and configuration without hydronephrosis. Right kidney demonstrates presence of a 3 renal cysts with largest measuring 1.8 cm. Left kidney is normal in size and configuration without hydronephrosis. Visualized portions of the aorta and IVC have normal caliber. Impression: Significant intrahepatic and extrahepatic biliary dilatation. Exact cause is not identified, but nonvisualized distal mass or biliary ductal stone is possible. Recommend correlation with appropriate laboratory values. If indicated, further evaluation could be made with CT imaging with intravenous contrast and/or MR imaging including MRCP.
--- NOTE | 2016-10-07 09:29 | RAD ---
Renal arterial Doppler History: Uncontrolled hypertension for 2 months. Comparison: None. Technique: Grayscale, color Doppler, and spectral Doppler imaging was performed of the kidneys, renal vessels, and aorta. Findings: Right kidney measures 10.2 cm in length. Left kidney measures 9.7 cm in length. Peak systolic velocity of the abdominal aorta is 121 cm/s. Peak systolic velocity of the proximal right renal artery is 97 cm/s. Peak velocity of the mid right renal artery is 145 cm/s. Peak velocity of the distal right renal artery is 118 cm/s. Maximum RA/AO ratio is 1.20. Peak systolic velocity in the proximal left renal artery is 95 cm/s. Mid left renal artery is not visualized. Peak systolic velocity of the distal left renal artery is 73 cm/s. Maximum left RA/AO ratio is 0.79. Both renal veins are patent. Impression: No evidence of hemodynamically significant renal artery stenosis.
--- NOTE | 2016-10-07 09:59 | PDOC ---
PROGRESS NOTES Subjective Subjective feels tires and week,lost weight in last 3 months Objective Objective Vital Signs Date Time Temp Pulse Resp B/P (MAP) Pulse Ox O2 Delivery O2 Flow Rate FiO2 10/07/16 09:02 20 94 Room Air 10/07/16 07:50 97.5 64 139/45 (76) 97.5 Intake and Output 10/07/16 06:59 Intake Total 400 ml Balance 400 ml Intake Oral 400 ml # Voids 5 Physical Exam Abdomen: Normal bowel sounds, Soft Heart: Regular rate, Normal S1, Normal S2, No murmurs Extremities: No cyanosis, No edema General: Alert, Oriented X3, Cooperative, No acute distress HEENT: Atraumatic, PERRLA Lungs: Clear to auscultation MUSCULOSKELETAL: Osteoarthritic changes both hands Neuro: Normal speech Psych/Mental Status: Mental status NL, Mood NL Skin: No breakdown Diagnosis Problem List Problems Medical Problems: (1) Accelerated hypertension Status: Acute (2) Confusion Status: Acute (3) Generalized weakness Status: Acute (4) Hyponatremia Status: Acute Assessment Assessment Problems Medical Problems: (1) Accelerated hypertension Status: Acute (2) Confusion Status: Acute (3) Generalized weakness Status: Acute (4) Hyponatremia Status: Acute FINAL IMPRESSION: 1. Malignant hypertension. 2. Coronary artery disease, history of bypass surgery. 3. History of bilateral carotid surgeries. 4. Smoking history. 5. History of anxiety, depression, and chronic pain. 6.GERD. 7. weight loss PLAN: CT chest ,abd and pelvis- weight loss. sono abd -dilated cbd ECHO good LVF. Gi consult ,will need EGD as out pt and also colonoscopy. carotid doppler no major blockages labs ok. Problems: Plan Plan of Care Problems Medical Problems: (1) Accelerated hypertension Status: Acute (2) Confusion Status: Acute (3) Generalized weakness Status: Acute (4) Hyponatremia Status: Acute Comment Review of Relevant I have reviewed the following items daniela (where applicable) has been applied. Medications Current Medications Atorvastatin Calcium (Lipitor) 40 mg QHS PO Last administered on 10/06/16 20: 24; Start 10/06/16 at 21:00 Calcium Carbonate/ Glycine (Tums) 500 mg PRN AFTMEALHC PRN PO INDIGESTION Last administered on 10/06/16 14:55; Start 10/06/16 at 11:45 Carvedilol (Coreg) 25 mg BIDWMEALS PO Last administered on 10/07/16t 07:35; Start 10/06/16 at 17:00 Vitals/I & O Vital Sign - Last 24 Hours 10/06/16 10/06/16 10/06/16 10/06/16 11:00 13:39 15:00 18:43 Temp 97.8 97.6 97.8 97.6 Pulse 63 91 67 Resp 20 18 20 B/P (MAP) 170/60 (96) 154/67 (96) 125/62 Pulse Ox 95 95 93 O2 Delivery Room Air Room Air Room Air 10/06/16 10/06/16 10/06/16 10/06/16 19:00 19:40 20:26 20:40 Temp 96.4 96.4 Pulse 71 Resp 18 20 20 B/P (MAP) 165/55 (91) Pulse Ox 91 93 93 90 O2 Delivery Room Air Room Air Room Air 10/06/16 10/07/16 10/07/16 10/07/16 23:00 00:26 03:00 04:47 Temp 97.7 98.2 97.7 98.2 Pulse 72 61 Resp 18 20 18 18 B/P (MAP) 157/60 (92) 133/79 (97) Pulse Ox 91 90 90 90 O2 Delivery Room Air Room Air Room Air Room Air 10/07/16 10/07/16 10/07/16 10/07/16 07:25 07:27 07:34 07:35 Pulse 65 65 Resp 20 18 B/P (MAP) 135/52 135/52 O2 Delivery Room Air Room Air 10/07/16 10/07/16 07:50 09:02 Temp 97.5 97.5 Pulse 64 Resp 18 20 B/P (MAP) 139/45 (76) Pulse Ox 94 94 O2 Delivery Room Air Room Air Intake and Output 10/06/16 10/06/16 10/07/16 14:59 22:59 06:59 Intake Total 400 ml Balance 400 ml RONNELL CALDERON MD Oct 07, 2016 09:59
[2016-10-07] MEDS: LORazepam 0.5 MG TABLET PO PRN ×3 (10:14→23:58)
[2016-10-07] MEDS ORDERED: IOHEXOL 240 MG/ML 50ML VIAL. PO ONE (10:45)
[2016-10-07] MEDS ORDERED: CONTRAST GIVEN MC PRN (11:00)
--- NOTE | 2016-10-07 11:17 | PDOC ---
CARDIO Progress Notes Date and Time Date of Service 10/07/2016 Time of Evaluation 1117 Subjective Subjective: No Chest Pain, No shortness of breath, No Palpitations, No Dizziness Vitals Vitals Vital Signs Date Time Temp Pulse Resp B/P (MAP) Pulse Ox O2 Delivery O2 Flow Rate FiO2 10/07/16 10:02 20 94 Room Air 10/07/16 07:50 97.5 64 139/45 (76) 97.5 Weight Weight [ ] Input and Output Intake and Output Intake and Output 10/07/16 07:00 Intake Total 400 ml Balance 400 ml Intake Oral 400 ml # Voids 5 Physical Exam HEENT: Neck Supple W Full Motion Chest: Symmetric LUNGS: Clear to Auscultation Heart: S1S2, RRR, other (tele: SB/SR) Abdomen: Soft N/T Extremities: No Edema Neurology: alert, oriented, follow commands Assessment Assessment 1. malignant HTN resolved - BP controlled today echo without significant findings renal artery Duplex without stenosis 2. hyponatremia per primary service 3. CAD with previous CABG grafts patent on cath 2014 continue secondary prevention no evidence of dysrhythmias since admission - d/c telemetry 4. HLD LDLs > 100 continue statin therapy - increase to high dose statin with CAD and PVD history 5. carotid disease bilateral stents CDU last year without significant findings 6. heartburn/GERD CT chest/abd/pelvis pending Will follow peripherally f/u with cardiology on 10/28/2016 KAMALJIT CORONEL APRN Oct 07, 2016 11:17
--- NOTE | 2016-10-07 12:36 | PDOC ---
Objective: Objective: Per RN - complains of headache. CT ordered. Vital Signs: Vital Signs Date Time Temp Pulse Resp B/P (MAP) Pulse Ox O2 Delivery O2 Flow Rate FiO2 10/07/16 11:27 18 94 Room Air 10/07/16 07:50 97.5 64 139/45 (76) 97.5 Imaging: Abd US 10/06/16 Findings: Pancreas is not well evaluated. Liver is normal in echogenicity. No focal hepatic masses are identified. There is intrahepatic biliary dilatation. Small nonspecific calcification measuring 4 mm seen in the right hepatic lobe. Right hepatic lobe measures 15.8 cm. Gallbladder demonstrates presence of large gallstone measuring 2.8 cm. No gallbladder wall thickening or pericholecystic fluid is identified. Common bile duct measures dilated at 11 mm in diameter. Spleen is unremarkable. Splenic length is 8.8 cm. Right kidney is normal in size and configuration without hydronephrosis. Right kidney demonstrates presence of a 3 renal cysts with largest measuring 1.8 cm. Left kidney is normal in size and configuration without hydronephrosis. Visualized portions of the aorta and IVC have normal caliber. Impression: Significant intrahepatic and extrahepatic biliary dilatation. Exact cause is not identified, but nonvisualized distal mass or biliary ductal stone is possible. Recommend correlation with appropriate laboratory values. If indicated , further evaluation could be made with CT imaging with intravenous contrast and/or MR imaging including MRCP. Renal Artery Duplex 10/06/16 Impression: No evidence of hemodynamically significant renal artery stenosis. PE: GEN: NAD, moves slowly from restroom to bed, a little unsteady it seems LUNGS: CTAB HEART: RRR ABD: S/ND/NT NEURO/PSYCH: A & O 3 A/P: Abnormal abd US -large gallstone, intra/extrahepatic ductal dilatation -LFTs WNL Decreased appetite, weight loss, LLQ pain -pain not bothersome today Reflux esophagitis -mild on EGD in 05/2015, restarted PPI here Normocytic anemia -normal iron profile HTN - improved -plans for outpt cardiology follow-up -- Await CT. Screening colonoscopy as outpt. FRITZ COUCH Oct 07, 2016 12:36
--- NOTE | 2016-10-07 13:29 | RAD ---
Indication weight loss. Assess for occult malignancy. Axial images through the chest, abdomen and pelvis were obtained. Oral contrast was administered. IV contrast was not. No similar imaging is available. CT chest: Findings. There is moderate hyperexpansion of the lungs. There is moderate plaquing seen associated with the thoracic aorta. Heavy coronary artery calcification is noted. There is no significant hilar or mediastinal adenopathy. An acute parenchymal infiltrate in either lung is not seen. No dominant soft tissue mass is seen in the chest. There is a 2 mm nodule in the right upper lobe, image 29 series 2. It is probably incidental. Follow-up imaging lungs the lines of the Fleischner criteria should be considered CT abdomen and pelvis: Findings A total right hip prosthesis is noted. No abnormality is seen associated with the liver and the spleen appears unremarkable. There is cholelithiasis. There may be some thickening associated with the body of the stomach. (The finding is likely reflective of a relatively collapsed stomach. If gastric pathology is suspect endoscopy would be advised). No pancreatic abnormality is seen. No significant renal anomalies are seen. There is a probable 1.5 cm cyst associated with the right kidney. Significant central or retroperitoneal adenopathy in the abdomen is not seen. No significant finding is seen in the pelvis. There are some degenerative changes in the lumbar spine. Significant degenerative change is also noted associated with the left hip IMPRESSION: No acute or definite significant finding seen in the chest, abdomen or pelvis. Thickening of the body of the stomach is not excluded but the appearance is probably reflective of the relatively collapsed state. If gastric pathology is clinically suspect endoscopy would be advised. Cholelithiasis. Small pulmonary nodule in the right upper lobe. Follow-up imaging along the lines of the Fleischner criteria should be considered. Nodules detected incidentally at non-screening CT Nodule size (mm) less than or equal to 4 Low Risk patients- no follow-up needed High Risk patients- follow-up at 12 months and if no change, no further imaging needed. Nodule size > 4-6 mm Low risk patients- follow- up at 12 months and if no change, no further imaging needed High risk patients- initial follow-up CT at 6-12 months and then at 18-24 months if no change. Nodule Size > 6-8 mm Low risk patients- initial follow-up CT at 6-12 months and then at 18-24 months if no change. High risk patients- initial follow- up CT at 3-6 months and then at 9-12 months if no change, Nodule Size >8 mm Either low or high risk patients: Follow-up CT at around 3, 9 and 24 [address], PET, and/or biopsy Note: newly detected indeterminate nodule in person 35 years of age or older. Low risk patients- minimal or absent history of smoking and/or other known risk factors. High risk patients- history of smoking or of other known risk factors. PQRS Compliance Statement: One or more of the following individualized dose reduction techniques were utilized for this examination: 1. Automated exposure control 2. Adjustment of the mA and/or kV according to patient size 3. Use of iterative reconstruction technique
[2016-10-07] MEDS: ATORVASTATIN CALCIUM 40 MG TABLET. PO SCH (20:36)
[2016-10-07] MEDS: ZOLPIDEM 5 MG TABLET. PO PRN (22:19)
[2016-10-08 03:00] VITALS: BP 138/45
[2016-10-08] MEDS: oxyCODONE IR 5 MG TABLET PO PRN (05:30)
[2016-10-08 06:15] LABS: BASO # 0.1 x10^3/uL (0.0-0.2); BASO % 1 % (0-3); EOS % 4 % (0-3); HEMATOCRIT 33.3 % (36.0-47.0); HEMOGLOBIN 11.6 g/dL (12.0-15.5); LYMPH # 2.3 x10^3/uL (1.0-4.8); LYMPH % 36 % (24-48); MEAN CORPUSCULAR HEMOGLOBIN 32 pg (25-35); MEAN CORPUSCULAR HGB CONC 35 g/dL (31-37); MEAN CORPUSCULAR VOLUME 91 fL (79-100); MONO % 14 % (0-9); NEUT % 45 % (31-73); PLATELET COUNT 211 x10^3/uL (140-400); RED BLOOD COUNT 3.65 x10^6/uL (3.50-5.40); RED CELL DISTRIBUTION WIDTH 14.2 % (11.5-14.5); WHITE BLOOD COUNT 6.3 x10^3/uL (4.0-11.0)
[2016-10-08 06:28] LABS: CALCIUM 8.9 mg/dL (8.5-10.1); GFR 55.3; POTASSIUM 4.1 mmol/L (3.5-5.1)
[2016-10-08] MEDS: oxyCODONE ER 10 MG TAB.ER.12H PO SCH (09:00)
[2016-10-08] MEDS ORDERED: HYDR-2868 PO (09:34)
[2016-10-08] MEDS ORDERED: ATOR40TA59 PO (09:34)
--- NOTE | 2016-10-08 09:55 | PDOC ---
PROGRESS NOTES Subjective Subjective MRCP today ,pt anxious about it ,claustrophobic Objective Objective Vital Signs Date Time Temp Pulse Resp B/P (MAP) Pulse Ox O2 Delivery O2 Flow Rate FiO2 10/08/16 06:30 94 Room Air 10/08/16 03:00 97.7 76 18 138/45 (76) 97.7 Intake and Output 10/08/16 07:00 Intake Total 690 ml Balance 690 ml Intake Oral 690 ml # Voids 17 Physical Exam Abdomen: Normal bowel sounds, Soft Heart: Regular rate, Normal S1, Normal S2, No murmurs Extremities: No cyanosis, No edema General: Alert, Oriented X3, Cooperative, No acute distress HEENT: Atraumatic, PERRLA Lungs: Clear to auscultation MUSCULOSKELETAL: Osteoarthritic changes both hands Neuro: Normal speech Psych/Mental Status: Mental status NL, Mood NL Skin: No breakdown Diagnosis Problem List Problems Medical Problems: (1) Accelerated hypertension Status: Acute (2) Confusion Status: Acute (3) Generalized weakness Status: Acute (4) Hyponatremia Status: Acute Assessment Assessment Problems Medical Problems: (1) Accelerated hypertension Status: Acute (2) Confusion Status: Acute (3) Generalized weakness Status: Acute (4) Hyponatremia Status: Acute FINAL IMPRESSION: 1. Malignant hypertension. 2. Coronary artery disease, history of bypass surgery. 3. History of bilateral carotid surgeries. 4. Smoking history. 5. History of anxiety, depression, and chronic pain. 6.GERD. 7. weight loss PLAN: MRCP today. d/c home today. CT chest -ve, CT abd and pelvis+ gall stones sono abd -dilated cbd ECHO good LVF. Gi consult ,will need EGD as out pt and also colonoscopy. carotid doppler no major blockages labs ok. renal artery no stenosis Problems: Plan Plan of Care Problems Medical Problems: (1) Accelerated hypertension Status: Acute (2) Confusion Status: Acute (3) Generalized weakness Status: Acute (4) Hyponatremia Status: Acute Comment Review of Relevant I have reviewed the following items daniela (where applicable) has been applied. Labs Laboratory Tests Test 10/08/16 05:20 White Blood Count 6.3 x10^3/uL (4.0-11.0) Red Blood Count 3.65 x10^6/uL (3.50-5.40) Hemoglobin 11.6 g/dL (12.0-15.5) Hematocrit 33.3 % (36.0-47.0) Mean Corpuscular Volume 91 fL (79-100) Mean Corpuscular Hemoglobin 32 pg (25-35) Mean Corpuscular Hemoglobin Concent 35 g/dL (31-37) Red Cell Distribution Width 14.2 % (11.5-14.5) Platelet Count 211 x10^3/uL (140-400) Neutrophils (%) (Auto) 45 % (31-73) Lymphocytes (%) (Auto) 36 % (24-48) Monocytes (%) (Auto) 14 % (0-9) Eosinophils (%) (Auto) 4 % (0-3) Basophils (%) (Auto) 1 % (0-3) Neutrophils # (Auto) 2.8 x10^3uL (1.8-7.7) Lymphocytes # (Auto) 2.3 x10^3/uL (1.0-4.8) Monocytes # (Auto) 0.9 x10^3/uL (0.0-1.1) Eosinophils # (Auto) 0.3 x10^3/uL (0.0-0.7) Basophils # (Auto) 0.1 x10^3/uL (0.0-0.2) Sodium Level 135 mmol/L (136-145) Potassium Level 4.1 mmol/L (3.5-5.1) Chloride Level 97 mmol/L (98-107) Carbon Dioxide Level 31 mmol/L (21-32) Anion Gap 7 (6-14) Blood Urea Nitrogen 9 mg/dL (7-20) Creatinine 1.0 mg/dL (0.6-1.0) Estimated GFR (Cockcroft-Gault) 55.3 Glucose Level 91 mg/dL (70-99) Calcium Level 8.9 mg/dL (8.5-10.1) Medications Current Medications Info (Do NOT chart on this entry -- for MONITORING) 1 each PRN DAILY PRN MC SEE COMMENTS; Start 10/07/16 at 11:00; Stop 10/09/16 at 10:59 Iohexol (Omnipaque 240 Mg/ml) 30 ml 1X ONCE PO Last administered on 10/07/16t 12:34; Start 10/07/16 at 10:45; Stop 10/07/16 at 10:46; Status DC Lorazepam (Ativan) 0.25 mg 1X ONCE IV ; Start 10/08/16 at 09:30; Stop 10/08/16 at 09:31; Status DC Lorazepam (Ativan) 0.5 mg 1X ONCE IM Last administered on 10/08/16t 09:44; Start 10/08/16 at 09:30; Stop 10/08/16 at 09:31; Status DC Vitals/I & O Vital Sign - Last 24 Hours 10/07/16 10/07/16 10/07/16 10/07/16 10:30 11:27 14:12 15:00 Temp 96.6 96.4 96.6 96.4 Pulse 59 69 Resp 18 18 18 18 B/P (MAP) 160/53 (88) 116/43 (67) Pulse Ox 94 94 94 94 O2 Delivery Room Air Room Air Room Air Room Air 10/07/16 10/07/16 10/07/16 10/07/16 17:57 18:04 19:00 19:04 Temp 97.9 97.9 Pulse 65 69 Resp 20 18 20 B/P (MAP) 143/71 138/70 (92) Pulse Ox 95 O2 Delivery Room Air Room Air 10/07/16 10/07/16 10/07/16 10/07/16 20:36 20:39 22:19 23:00 Temp 97.7 97.7 Pulse 72 68 Resp 20 20 18 B/P (MAP) 159/55 (89) 158/57 (90) Pulse Ox 94 O2 Delivery Room Air Room Air Room Air Room Air 10/08/16 10/08/16 10/08/16 03:00 05:30 06:30 Temp 97.7 97.7 Pulse 76 Resp 18 B/P (MAP) 138/45 (76) Pulse Ox 94 94 94 O2 Delivery Room Air Room Air Room Air Intake and Output 10/07/16 10/07/16 10/08/16 15:00 23:00 07:00 Intake Total 240 ml 350 ml 100 ml Balance 240 ml 350 ml 100 ml RONNELL CALDERON MD Oct 08, 2016 09:55
--- NOTE | 2016-10-08 11:54 | PDOC ---
Subjective: Subjective: Anxious, had to move to a quieter room. Took Ativan in preparation for MRCP. Objective: Objective: MRCP and CA19-9 ordered. Vital Signs: Vital Signs Date Time Temp Pulse Resp B/P (MAP) Pulse Ox O2 Delivery O2 Flow Rate FiO2 10/08/16 08:00 Room Air 10/08/16 06:30 94 10/08/16 03:00 97.7 76 18 138/45 (76) 97.7 Labs: Laboratory Tests Test 10/08/16 05:20 White Blood Count 6.3 x10^3/uL Red Blood Count 3.65 x10^6/uL Hemoglobin 11.6 g/dL Hematocrit 33.3 % Mean Corpuscular Volume 91 fL Mean Corpuscular Hemoglobin 32 pg Mean Corpuscular Hemoglobin Concent 35 g/dL Red Cell Distribution Width 14.2 % Platelet Count 211 x10^3/uL Neutrophils (%) (Auto) 45 % Lymphocytes (%) (Auto) 36 % Monocytes (%) (Auto) 14 % Eosinophils (%) (Auto) 4 % Basophils (%) (Auto) 1 % Neutrophils # (Auto) 2.8 x10^3uL Lymphocytes # (Auto) 2.3 x10^3/uL Monocytes # (Auto) 0.9 x10^3/uL Eosinophils # (Auto) 0.3 x10^3/uL Basophils # (Auto) 0.1 x10^3/uL Sodium Level 135 mmol/L Potassium Level 4.1 mmol/L Chloride Level 97 mmol/L Carbon Dioxide Level 31 mmol/L Anion Gap 7 Blood Urea Nitrogen 9 mg/dL Creatinine 1.0 mg/dL Estimated GFR (Cockcroft-Gault) 55.3 Glucose Level 91 mg/dL Calcium Level 8.9 mg/dL Imaging: CT chest/A/P 10/07/16 CT chest: There is moderate hyperexpansion of the lungs. There is moderate plaquing seen associated with the thoracic aorta. Heavy coronary artery calcification is noted. There is no significant hilar or mediastinal adenopathy. An acute parenchymal infiltrate in either lung is not seen. No dominant soft tissue mass is seen in the chest. There is a 2 mm nodule in the right upper lobe, image 29 series 2. It is probably incidental. Follow-up imaging lungs the lines of the Fleischner criteria should be considered CT abdomen and pelvis: A total right hip prosthesis is noted. No abnormality is seen associated with the liver and the spleen appears unremarkable. There is cholelithiasis. There may be some thickening associated with the body of the stomach. (The finding is likely reflective of a relatively collapsed stomach. If gastric pathology is suspect endoscopy would be advised). No pancreatic abnormality is seen. No significant renal anomalies are seen. There is a probable 1.5 cm cyst associated with the right kidney. Significant central or retroperitoneal adenopathy in the abdomen is not seen. No significant finding is seen in the pelvis. There are some degenerative changes in the lumbar spine. Significant degenerative change is also noted associated with the left hip IMPRESSION: No acute or definite significant finding seen in the chest, abdomen or pelvis. Thickening of the body of the stomach is not excluded but the appearance is probably reflective of the relatively collapsed state. If gastric pathology is clinically suspect endoscopy would be advised. Cholelithiasis. Small pulmonary nodule in the right upper lobe. Follow-up imaging along the lines of the Fleischner criteria should be considered. PE: GEN: NAD, was asleep LUNGS: CTAB HEART: RRR ABD: lower discomfort NEURO/PSYCH: A & O 3 A/P: Abnormal abd imaging -US: large gallstone, intra/extrahepatic ductal dilatation -CT as above -LFTs WNL Decreased appetite, weight loss, LLQ pain -on PPI, mild reflux on EGD 05/2015 Anxiety -per primary -- Await MRCP, CA19-9. FRITZ COUCH Oct 08, 2016 11:54
[2016-10-08] MEDS: PANTOPRAZOLE 40 MG TABLET.DR. PO SCH (14:46)
[2016-10-08] MEDS: CARVEDILOL 12.5 MG TABLET. PO SCH ×2 (14:46→15:03)
[2016-10-08] MEDS: ASPIRIN ENTERIC COATED 81 MG TABLET.DR. PO SCH (14:47)
[2016-10-08] MEDS: CLOPIDOGREL BISULFATE 75 MG TABLET PO SCH (14:47)
[2016-10-08] MEDS: LISINOPRIL 20 MG TABLET PO SCH (14:47)
[2016-10-08 15:03] VITALS: BP 152/75
--- NOTE | 2016-10-08 15:09 | RAD ---
MR abdomen without intravenous contrast (MRCP protocol) History: Abnormal CT scan, weight loss left lower quadrant pain. Comparison: CT of chest abdomen pelvis 10/07/2016. Technique: MRI of the abdomen was performed without intravenous contrast according to an MRCP protocol. Rotating MIPS were obtained from the coronal respiratory triggered MRCP acquisition. Additional series of the abdomen included axial T1 in and out of phase, axial and coronal T2, as well as axial and coronal T2 with fat saturation. Findings: The MRCP images are suboptimal secondary to motion. There is evidence of moderate intrahepatic biliary dilatation and mild intrahepatic biliary dilatation. Common bile duct has a caliber of 8 mm, enlarged. No convincing cause is identified. No definite ductal stone is seen. There is a loss of signal in the gallbladder fossa, compatible with large known gallstone occupying essentially the entirety of the gallbladder lumen. The pancreatic duct has diameter of 3 mm, at the upper limits of normal. No pancreas divisum is identified. No convincing pancreatic mass or acute pancreatic inflammation is appreciated. Spleen and bilateral adrenal glands are unremarkable. Right kidney demonstrates several lesions with the increased T2 signal, probably cysts. No renal obstruction is identified. Impression: 1. There is moderate intrahepatic biliary dilatation and mild extrahepatic biliary dilatation. Exact cause is not identified. The MRCP images are suboptimal secondary to motion, but no convincing ductal stone is identified. A correlate with laboratory values regarding evidence of biliary obstruction. 2. Evaluation for pancreatic mass is limited secondary to lack of intravenous contrast, but no gross pancreatic mass, inflammation, or other abnormality is seen. 3. Gallbladder is not not well-visualized secondary to a large gallstone. The gallstone is better seen on recent CT ultrasound of the abdomen.
--- NOTE | 2016-10-12 13:46 | PDOC ---
Provider Note Provider Note Discharge summary dictated. #[id number] RONNELL CALDERON MD Oct 12, 2016 13:46
--- NOTE | 2016-10-12 23:41 | DS ---
DATE OF DISCHARGE: 10/08/2016 REASON FOR ADMISSION TO THE HOSPITAL: Accelerated hypertension, dizziness, lightheaded. CONSULTATIONS: 1. Dr. Swain, Cardiology. 2. Dr. Krause, GI. PROCEDURES DONE: 1. Echocardiogram. 2. Carotid Doppler. 3. Renal arterial Doppler ultrasound of the kidneys. 4. CT of the chest, abdomen and pelvis. 5. MRCP and CT head. HOSPITAL COURSE: The patient is a 66-year-old female with history of coronary artery disease, bypass surgery, bilateral carotid surgeries, feeling lightheaded, dizzy. Blood pressure was high. CT head was negative. Carotid Doppler, no significant stenosis. Echocardiogram shows good left ventricular function. The patient has a high blood pressure, had a renal arterial Doppler, negative stenosis. Ultrasound of the kidneys was negative. The patient was complaining of epigastric pain and weight loss. Had a CT of the chest, there was thickening on the bloody of the stomach, otherwise gallstones, small pulmonary nodule less than 4 mm and the patient had an MRCP because of the biliary dilatation, no pancreatic obstruction, no common bile duct stone, has some gallstones. The patient was feeling better. She had EGD last year and recommend colonoscopy. The patient is going to do that outpatient. FINAL DIAGNOSES: 1. Accelerated hypertension. 2. History of coronary artery disease. Stable, heart bypass surgery, echocardiogram with normal LV function. 3. History of carotid stenosis, had surgery, no significant stenosis at this point. 4. Hypertension. 5. Anxiety. 6. Gallstones. PLAN: At this time, discharge home. See MRAD for discharge medications. Scheduled for outpatient EGD and colonoscopies. RONNELL CALDERON MD DR: CARIN/honey JOB#: [id number] / [id number] DONNA
== END 2016-10-08 17:01 | disposition home or self-care (01) | DRG 78 ==
LOC: ER 20:28 → 5 NORTH 22:10
PROVIDERS: ADMIT Internal Medicine; ATTEND Internal Medicine
DX: I67.4 Hypertensive encephalopathy (principal); E87.1 Hypo-osmolality and hyponatremia; K21.0 Gastro-esophageal reflux disease with esophagitis; I10 Essential (primary) hypertension; I25.10 Atherosclerotic heart disease of native coronary artery without angina pectoris; E05.90 Thyrotoxicosis, unspecified without thyrotoxic crisis or storm; F32.9 Major depressive disorder, single episode, unspecified; G89.29 Other chronic pain; M19.90 Unspecified osteoarthritis, unspecified site; N28.9 Disorder of kidney and ureter, unspecified; R26.81 Unsteadiness on feet; R63.4 Abnormal weight loss; R91.1 Solitary pulmonary nodule; D64.9 Anemia, unspecified; E78.00 Pure hypercholesterolemia, unspecified; Z96.641 Presence of right artificial hip joint; E78.5 Hyperlipidemia, unspecified; F17.210 Nicotine dependence, cigarettes, uncomplicated; F40.240 Claustrophobia; I73.9 Peripheral vascular disease, unspecified; Z82.3 Family history of stroke; Z82.49 Family history of ischemic heart disease and other diseases of the circulatory system; Z95.1 Presence of aortocoronary bypass graft; Z86.73 Personal history of transient ischemic attack (TIA), and cerebral infarction without residual deficits; K80.20 Calculus of gallbladder without cholecystitis without obstruction
CPT/HCPCS: 36415; 70450; 71010; 71250; 74176; 74181; 76700; 80048; 80053; 80061; 81001; 83540; 83550; 83735; 85027; 86301; 93005; 93306; 93880; 93975; 96361; 96374; 96375; J0360; J2060; J2405; J3010; J7030; J8597; Q9966; 99285-25

== ENCOUNTER 2016-11-08 16:47 | Inpatient (IN) | payer MEDICARE, OTHER ==
[~2016-11-08] VITALS: Ht 152.4 cm; Wt 59.2 kg
[~2016-11-08 16:47] MED LIST changes: +ATOR40TA59 PO; -CLOP75TA27 PO; +CLOP75TA57 PO; -ERGO500012 PO; +ERGO500027 PO; -ESCI20TA PO; +ESCITALOPRAM OX20 MG PO; +HYDR-2868 PO; -OMEP20TA PO; +OMEP20TA8 PO; -OXYC10TA32 PO; +OXYC10TA45 PO
[2016-11-08] MEDS ORDERED: IV NORMAL SALINE 1000ML BAG 1,000 ML IV ONE (17:45)
[2016-11-08] MEDS ORDERED: ONDANSETRON PF 4 MG/2 ML VIAL. IV PRN (17:45)
[2016-11-08] MEDS ORDERED: ACETAMINOPHEN 325 MG TABLET. PO PRN (17:45)
--- NOTE | 2016-11-08 17:56 | PHYS DOC ---
Past Medical History Past Medical History: Anxiety, Arthritis, Bronchitis, CAD, Depression, High Cholesterol, Hypertension Additional Past Medical Histor: blood clots, CHRONIC PAIN, HYPONATREMIA Past Surgical History: Coronary Bypass Surgery, , Hip Replacement, Other Additional Past Surgical Histo: total R hip, R shoulder, stent placement, R & L carotid Alcohol Use: None Drug Use: None Adult General Chief Complaint Chief Complaint: ABNORMAL LABS [facility] HPI Patient is a 66 year old female with history of hypertension high cholesterol depression and anxiety who presents today with hyponatremia and generalized weakness. Patient states she did lab work yesterday and the doctor's office called her today informing her her sodium is very low and her kidney function is not good and she needs to come to the hospital and get admitted. Patient denies any chest pain or shortness of breath. Patient states she did inform the marketing proposal coordinator she is supposed to be admitted and they checked her into the emergency room. PCP Review of Systems Review of Systems Constitutional: Generalized weakness hyponatremia Eyes: Denies change in visual acuity, redness, or eye pain [] HENT: Denies nasal congestion or sore throat [] Respiratory: Denies cough or shortness of breath [] Cardiovascular: No additional information not addressed in HPI [] GI: Denies abdominal pain, nausea, vomiting, bloody stools or diarrhea [] : Denies dysuria or hematuria [] Musculoskeletal: Denies back pain or joint pain [] Integument: Denies rash or skin lesions [] Neurologic: Denies headache, focal weakness or sensory changes [] Endocrine: Denies polyuria or polydipsia [] Allergies Allergies Allergies Coded Allergies Type Severity Reaction Last Updated Verified No Known Drug Allergies 10/01/16 No Physical Exam Physical Exam Constitutional: Patient appears very tired. No acute distress, non-toxic appearance. [] HENT: Normocephalic, atraumatic, bilateral external ears normal, oropharynx moist, no oral exudates, nose normal. [] Eyes: PERRLA, EOMI, conjunctiva normal, no discharge. [] Neck: Normal range of motion, no tenderness, supple, no stridor. [] Cardiovascular:Heart rate regular rhythm, no murmur [] Lungs & Thorax: Bilateral breath sounds clear to auscultation [] Abdomen: Bowel sounds normal, soft, no tenderness, no masses, no pulsatile masses. [] Skin: Warm, dry, no erythema, no rash. [] Back: No tenderness, no CVA tenderness. [] Extremities: No tenderness, no cyanosis, no clubbing, ROM intact, no edema. [] Neurologic: Alert and oriented X 3, normal motor function, normal sensory function, no focal deficits noted. Cranial nerves II through XII intact Psychologic: Affect normal, judgement normal, mood normal. [] Current Patient Data Vital Signs Vital Signs Date Time Temp Pulse Resp B/P (MAP) Pulse Ox O2 Delivery O2 Flow Rate FiO2 11/08/16 17:12 97.8 76 18 166/78 (107) 96 Room Air 97.8 EKG EKG [] Radiology/Procedures Radiology/Procedures [] Course & Med Decision Making Course & Med Decision Making Pertinent Labs and Imaging studies reviewed. (See chart for details) This is a 66-year-old female patient who presents to the ED today stating she was seen by the PCP yesterday they did outpatient lab work and they called her today stating requesting her to be admitted because her sodium and kidney function was abnormal. Patient some was checked into the emergency room. 17:[address] Solis who stated her Na was around 123 he gave me admitting orders including NS at 125. Patient was admitted in stable condition. Floor nurses are supposed to call Dr. Solis with abnormal labs and questions. Dragon Disclaimer Dragon Disclaimer This electronic medical record was generated, in whole or in part, using a voice recognition dictation system. Departure Departure Impression: Primary Impression: Hyponatremia Additional Impression: Generalized weakness Disposition: ADMITTED INPATIENT Admitting Physician: Other Condition: STABLE Referrals: RONNELL SOLIS MD (PCP) Problem Qualifiers SAGRARIO HERNANDEZ APRN Nov 08, 2016 17:56
--- NOTE | 2016-11-08 18:11 | ACF ---
Admission Forms Criteria HYPONATREMIA; HYPERNATREMIA; HYPOKALEMIA; HYPERKALEMIA; HYPOCALCEMIA; HYPERCALCEMIA Clinical Indications for Inpatient Care (Place 'X' for any and all applicable criteria): Ongoing inpatient care may be indicated for ANY ONE of the following [G](1)(2)(3 )(5): [X]I. Hyponatremia with ANY ONE of the following: [X]a) Sodium less than 130 mEq/L (mmol/L) (new) (6)(22) [ ]b) Sodium less than 135 mEq/L (mmol/L) with ANY ONE of the following: [ ]i) Severe medical etiology requiring inpatient management (eg, heart failure, hypovolemia) [ ]ii) Altered mental status [ ]iii) Seizures [ ]II. Hypernatremia with ANY ONE of the following: [ ]a) Sodium greater than 155 mEq/L (mmol/L) [ ]b) Sodium greater than 150 mEq/L (mmol/L) with ANY ONE of the following: [ ] i) Altered mental status [ ]ii) Seizures [ ]iii) Severe medical etiology (eg, hypovolemia, diabetes insipidus) [ ]iv) Severe weakness [ ]v) Severe medical etiology (eg, hemolysis, infection, drug overdose) [ ]III. Hypokalemia with ANY ONE of the following: [ ]a) Potassium less than 2.5 mEq/L (mmol/L) despite outpatient and emergency treatment [ ]b) Potassium less than 3.0 mEq/L (mmol/L) with ANY ONE of the following: [ ]i) Weakness [ ]ii) Cardiac abnormality (eg, arrhythmia, conduction disturbance) [ ]iii) Cardiac ischemia [ ]iv) Ileus [ ]v) Ongoing medical cause requiring inpatient management. ( e.g., acute renal wasting, SIADH) [ ]vi) Other severe symptoms [ ] IV. Hyperkalemia with ANY ONE of the following: [ ]a) Potassium greater than 6.5 mEq/L (mmol/L) [ ]b) Potassium greater than 5 mEq/L (mmol/L) with ANY ONE of the following: [ ]i) Severe ECG findings [H] [ ]ii) Acute worsening of renal failure (creatinine greater than 2.5 mg/dL (221 micromoles/L) or significant elevation for age and size) [ ] V. Hypocalcemia with ANY ONE of the following: [ ]a) Calcium less than 7 mg/dL (1.75 mmol/L) despite outpatient and emergency treatment(19) [ ]b) Calcium less than 8 mg/dL (2 mmol/L) with significant symptoms or findings; examples include: [ ]i) Cardiac abnormality (eg, arrhythmia or conduction disturbance) [ ]ii) Altered mental status [ ]iii) Seizures [ ]iv) Breathing difficulty [ ]v) Muscle spasms [ ]. Hypercalcemia with ANY ONE of the following: [ ]a) Calcium greater than 14 mg/dL (3.5 mmol/L) [ ]b) Calcium greater than 12 mg/dL (3 mmol/L) with ANY ONE of the following: [ ]i) Significant dehydration or hypovolemia as indicated by ANY ONE of the following(2): [ ]1. Clinically significant dehydration as indicated by ANY ONE of the following: [ ]A. Acute loss of weight from baseline (5% of body weight in adults, 9% in pediatric patients) [ ]B. Hemodynamic instability [ ]C. Acute renal failure [ ]D. Serum sodium greater than 150 mEq/L (mmol/L) [ ]2) Dehydration that is persistent indicated by ALL of the following: [ ]A. Oral rehydration therapy not tolerated or insufficient to adequately correct dehydration [ ]B. Appropriate intravenous treatment (eg, fluids ) does not readily correct dehydration ie, after 12 to 24 hours of treatment) [ ]ii) Significant symptoms or findings; examples include: [ ]1) Altered mental status [ ]2) Cardiac abnormality (eg, arrhythmia, conduction disturbance) [ ]3) Cardiac abnormality (eg, arrhythmia, conduction disturbance) The original [employer] includes the [facility] content created by [employer] includes the [facility] has been revised. The portions of the content which have been revised are identified through the use of italic text or in bold, and [facility] has neither reviewed nor approved the modified material. All other unmodified content is copyright [facility] [employer] Please see references footnoted in the original [facility] [employer] edition 2016 Admission Criteria Met?: Yes ROSIE PITTS Nov 08, 2016 18:11
[2016-11-08 18:27] VITALS: BP 161/84
[2016-11-08 18:49] LABS: BASO % 0 % (0-3); EOS % 0 % (0-3); HEMATOCRIT 35.5 % (36.0-47.0); HEMOGLOBIN 12.3 g/dL (12.0-15.5); LYMPH # 1.2 x10^3/uL (1.0-4.8); LYMPH % 16 % (24-48); MEAN CORPUSCULAR HEMOGLOBIN 32 pg (25-35); MEAN CORPUSCULAR HGB CONC 35 g/dL (31-37); MEAN CORPUSCULAR VOLUME 92 fL (79-100); MONO % 10 % (0-9); NEUT % 73 % (31-73); PLATELET COUNT 257 x10^3/uL (140-400); RED BLOOD COUNT 3.84 x10^6/uL (3.50-5.40); RED CELL DISTRIBUTION WIDTH 13.6 % (11.5-14.5); WHITE BLOOD COUNT 7.4 x10^3/uL (4.0-11.0)
[2016-11-08 19:00] VITALS: BP 161/84
[2016-11-08 19:00] LABS: CALCIUM 8.7 mg/dL (8.5-10.1); CREATININE 1.5 mg/dL (0.6-1.0); GFR 34.6
[2016-11-08 19:03] LABS: POTASSIUM 2.9 mmol/L (3.5-5.1)
[2016-11-08] MEDS ORDERED: POTASSIUM CHLORIDE 20 MEQ TABLET.ER. PO ONE ×2 (19:15→23:15)
[2016-11-08] MEDS ORDERED: diphenhydrAMINE HCL 25 MG CAPSULE PO PRN (20:00)
[2016-11-08] MEDS: IV NORMAL SALINE 1000ML BAG 1,000 ML IV SCH (20:05)
[2016-11-08] MEDS: hydrALAZINE 25 MG TABLET PO SCH (20:16)
[2016-11-08] MEDS: ATORVASTATIN CALCIUM 40 MG TABLET. PO SCH (20:16)
--- NOTE | 2016-11-08 20:21 | EKG ---
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
[2016-11-08] MEDS: oxyCODONE IR 5 MG TABLET PO PRN (20:24)
[2016-11-08] MEDS: oxyCODONE ER 10 MG TAB.ER.12H PO SCH (21:59)
[2016-11-08] MEDS: ZOLPIDEM 5 MG TABLET. PO PRN (22:35)
[2016-11-08] MEDS: NICOTINE 7MG PATCH. TD PRN (22:39)
[2016-11-08 23:05] VITALS: BP 136/68
[2016-11-09 02:57] VITALS: BP 130/65
[2016-11-09 05:05] LABS: BASO # 0.1 x10^3/uL (0.0-0.2); BASO % 1 % (0-3); EOS % 2 % (0-3); HEMATOCRIT 36.9 % (36.0-47.0); HEMOGLOBIN 12.6 g/dL (12.0-15.5); LYMPH # 2.6 x10^3/uL (1.0-4.8); LYMPH % 39 % (24-48); MEAN CORPUSCULAR HEMOGLOBIN 32 pg (25-35); MEAN CORPUSCULAR HGB CONC 34 g/dL (31-37); MEAN CORPUSCULAR VOLUME 93 fL (79-100); MONO % 10 % (0-9); NEUT % 49 % (31-73); PLATELET COUNT 282 x10^3/uL (140-400); RED BLOOD COUNT 3.99 x10^6/uL (3.50-5.40); RED CELL DISTRIBUTION WIDTH 13.5 % (11.5-14.5); WHITE BLOOD COUNT 6.8 x10^3/uL (4.0-11.0)
[2016-11-09] MEDS: oxyCODONE IR 5 MG TABLET PO PRN ×3 (05:07→20:05)
[2016-11-09] MEDS: IV NORMAL SALINE 1000ML BAG 1,000 ML IV SCH ×3 (05:07→20:08)
[2016-11-09 05:11] LABS: CALCIUM 8.4 mg/dL (8.5-10.1); CREATININE 1.4 mg/dL (0.6-1.0); GFR 37.5; POTASSIUM 4.3 mmol/L (3.5-5.1)
[2016-11-09] MEDS: CLOPIDOGREL BISULFATE 75 MG TABLET PO SCH ×2 (06:37→08:32)
[2016-11-09 07:00] VITALS: BP 138/65
[2016-11-09] MEDS: PANTOPRAZOLE 40 MG TABLET.DR. PO SCH (07:35)
[2016-11-09] MEDS: ASPIRIN ENTERIC COATED 81 MG TABLET.DR. PO SCH (08:32)
[2016-11-09] MEDS: hydrALAZINE 25 MG TABLET PO SCH ×2 (08:32→20:08)
[2016-11-09] MEDS: oxyCODONE ER 10 MG TAB.ER.12H PO SCH ×2 (08:33→20:05)
[2016-11-09] MEDS: NICOTINE 7MG PATCH. TD PRN (08:33)
[2016-11-09] MEDS: ATENOLOL 50 MG TABLET. PO SCH (08:36)
--- NOTE | 2016-11-09 09:48 | RAD ---
Indication pneumonia. PA and lateral views of the chest were obtained. Note is made of a previous plain film examination 10/04/2016. Note is made of a CT examination of the chest 10/07/2016. Postoperative changes are noted. Heart size is normal. The pulmonary vasculature is normal. An acute parenchymal infiltrate is not seen. Significant pleural fluid is not present. There is no pneumothorax. IMPRESSION: No acute or focal process is seen in the chest
--- NOTE | 2016-11-09 10:12 | EKG ---
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
--- NOTE | 2016-11-09 10:23 | PDOC1 ---
HISTORY AND PHYSICAL Chief Complaint Chief Complaint This is 66 year old female has been admitted with a chief complaint of dizziness and lightheadedness and falling at home.Routine labs showed Na 123, cr 1.5 ,pt was admitted for hyponatremia ,for iv fluids . Problems: Past Medical History Cardiovascular: CAD, HTN, Hyperlipidemia, Other Pulmonary: Bronchitis, Pneumonia CENTRAL NERVOUS SYSTEM: TIA, Other GI: GERD Heme/Onc: No pertinent hx Hepatobiliary: No pertinent hx Psych: Anxiety, Bipolar, Depression Musculoskeletal: Osteoarthritis Rheumatologic: No pertinent hx Infectious disease: No pertinent hx Renal/: No pertinent hx Endocrine: Hypothyroidism Past Surgical History Past Surgical History: CABG, Total hip replacement, Other Past Family History Family History: Other Past Social History PSH smokes 1 pack for 40 yrs, dec to /3 pack recently. denies alcohol Review of Symptoms Review of Symptoms General ROS: positive for dizziness and lightheadedness ,unsteady at home Psychological ROS: negative Ophthalmic ROS: negative ENT ROS: negative Allergy and Immunology ROS: negative Hematology and Lymphatic: negative Endocrine ROS: negative Respiratory ROS: no cold, cough, dyspnea. Cardiovascular ROS: no chest pain or dyspnea on exertion Gastrointestinal ROS: no abdominal pain, change in bowel habits, or black or bloody stools Genito-Urinary ROS: no dysuria, trouble voiding, or hematuria Musculoskeletal ROS: no pain Dermatological ROS: no rash Medications Current Medications Acetaminophen (Tylenol) 650 mg PRN Q4HRS PRN PO FEVER Last administered on 06:37; Start 11/08/16 at 17:45; Stop 11/09/16 at 17:44 Aspirin (Ecotrin) 81 mg DAILY08 PO Last administered on 11/09/16 08:32; Start 11/09/16 at 08:00 Atenolol (Tenormin) 25 mg DAILY PO Last administered on 11/09/16 08:36; Start 11/09/16 at 09:00 Atorvastatin Calcium (Lipitor) 40 mg QHS PO Last administered on 11/08/16 20:16 ; Start 11/08/16 at 21:00 Clopidogrel Bisulfate (Plavix) 75 mg DAILY07 PO Last administered on 11/09/16 08:32; Start 11/09/16 at 07:00 Diphenhydramine HCl (Benadryl) 25 mg PRN Q6HRS PRN PO ITCHING Last administered on 11/08/16 20:16; Start 11/08/16 at 20:00 Hydralazine HCl (Apresoline) 25 mg BID PO Last administered on 11/09/16 08:32; Start 11/08/16 at 21:00 Nicotine (Nicoderm Cq 7mg) 1 patch PRN DAILY PRN TD SMOKING CESSATION Last administered on 11/09/16 08:33; Start 11/08/16 at 22:15 Ondansetron HCl (Zofran) 4 mg PRN Q8HRS PRN IV NAUSEA/VOMITING; Start 11/08/16 at 17:45; Stop 11/09/16 at 17:44 Oxycodone HCl (OxyCONTIN) 10 mg BID PO Last administered on 11/09/16 08:33; Start 11/08/16 at 21:00 Oxycodone HCl (Roxicodone) 10 mg PRN Q4HRS PRN PO PAIN BREAKTHROUGH Last administered on 11/09/16 05:07; Start 11/08/16 at 20:15 Pantoprazole Sodium (Protonix) 40 mg DAILYAC PO Last administered on 11/09/16 07:35; Start 11/09/16 at 07:30 Potassium Chloride (Klor-Con) 40 meq 1X ONCE PO Last administered on 11/08/16 19:53; Start 11/08/16 at 19:15; Stop 11/08/16 at 19:18; Status DC Potassium Chloride (Klor-Con) 40 meq 1X ONCE PO Last administered on 11/08/16 22:35; Start 11/08/16 at 23:15; Stop 11/08/16 at 23:16; Status DC Sodium Chloride 1,000 ml @ 125 mls/hr 1X ONCE IV ; Start 11/08/16 at 17:45; Stop 11/08/16 at 18:34; Status DC Sodium Chloride 1,000 ml @ 125 mls/hr Q8H IV Last administered on 11/09/16 05: 07; Start 11/08/16 at 18:45 Zolpidem Tartrate (Ambien) 5 mg PRN QHS PRN PO INSOMNIA Last administered on 22:35; Start 11/08/16 at 20:00 Allergy Allergies Coded Allergies Type Severity Reaction Last Updated Verified No Known Drug Allergies 10/01/16 No Physical Exam Physical Exam General appearance - alert,well appearing, and in no distress and oriented to person, place, and time Mental Status - alert, oriented to person, place, and time, affect appropriate to mood Head - normal, neck has scars of kojo carotid surgeries Chest - clear to auscultation, no wheezes, rales or rhonchi, symmetric air entry Heart - S1 and S2 normal, cabg scar Abdomen - soft, nontender, nondistended, no masses or organomegaly Neurological - alert and oriented, no focal deficits Musculoskeletal - no muscular tenderness noted Extremities - no pedal edema Skin - warm and dry Labs Laboratory Tests Test 11/08/16 18:20 11/09/16 03:35 White Blood Count 7.4 x10^3/uL (4.0-11.0) 6.8 x10^3/uL (4.0-11.0) Red Blood Count 3.84 x10^6/uL (3.50-5.40) 3.99 x10^6/uL (3.50-5.40) Hemoglobin 12.3 g/dL (12.0-15.5) 12.6 g/dL (12.0-15.5) Hematocrit 35.5 % (36.0-47.0) 36.9 % (36.0-47.0) Mean Corpuscular Volume 92 fL (79-100) 93 fL (79-100) Mean Corpuscular Hemoglobin 32 pg (25-35) 32 pg (25-35) Mean Corpuscular Hemoglobin Concent 35 g/dL (31-37) 34 g/dL (31-37) Red Cell Distribution Width 13.6 % (11.5-14.5) 13.5 % (11.5-14.5) Platelet Count 257 x10^3/uL (140-400) 282 x10^3/uL (140-400) Neutrophils (%) (Auto) 73 % (31-73) 49 % (31-73) Lymphocytes (%) (Auto) 16 % (24-48) 39 % (24-48) Monocytes (%) (Auto) 10 % (0-9) 10 % (0-9) Eosinophils (%) (Auto) 0 % (0-3) 2 % (0-3) Basophils (%) (Auto) 0 % (0-3) 1 % (0-3) Neutrophils # (Auto) 5.4 x10^3uL (1.8-7.7) 3.3 x10^3uL (1.8-7.7) Lymphocytes # (Auto) 1.2 x10^3/uL (1.0-4.8) 2.6 x10^3/uL (1.0-4.8) Monocytes # (Auto) 0.8 x10^3/uL (0.0-1.1) 0.7 x10^3/uL (0.0-1.1) Eosinophils # (Auto) 0.0 x10^3/uL (0.0-0.7) 0.1 x10^3/uL (0.0-0.7) Basophils # (Auto) 0.0 x10^3/uL (0.0-0.2) 0.1 x10^3/uL (0.0-0.2) Sodium Level 123 mmol/L (136-145) 129 mmol/L (136-145) Potassium Level 2.9 mmol/L (3.5-5.1) 4.3 mmol/L (3.5-5.1) Chloride Level 83 mmol/L (98-107) 92 mmol/L (98-107) Carbon Dioxide Level 33 mmol/L (21-32) 32 mmol/L (21-32) Anion Gap 7 (6-14) 5 (6-14) Blood Urea Nitrogen 13 mg/dL (7-20) 13 mg/dL (7-20) Creatinine 1.5 mg/dL (0.6-1.0) 1.4 mg/dL (0.6-1.0) Estimated GFR (Cockcroft-Gault) 34.6 37.5 Glucose Level 120 mg/dL (70-99) 92 mg/dL (70-99) Calcium Level 8.7 mg/dL (8.5-10.1) 8.4 mg/dL (8.5-10.1) Laboratory Tests Test 11/08/16 18:20 11/09/16 03:35 White Blood Count 7.4 x10^3/uL (4.0-11.0) 6.8 x10^3/uL (4.0-11.0) Red Blood Count 3.84 x10^6/uL (3.50-5.40) 3.99 x10^6/uL (3.50-5.40) Hemoglobin 12.3 g/dL (12.0-15.5) 12.6 g/dL (12.0-15.5) Hematocrit 35.5 % (36.0-47.0) 36.9 % (36.0-47.0) Mean Corpuscular Volume 92 fL (79-100) 93 fL (79-100) Mean Corpuscular Hemoglobin 32 pg (25-35) 32 pg (25-35) Mean Corpuscular Hemoglobin Concent 35 g/dL (31-37) 34 g/dL (31-37) Red Cell Distribution Width 13.6 % (11.5-14.5) 13.5 % (11.5-14.5) Platelet Count 257 x10^3/uL (140-400) 282 x10^3/uL (140-400) Neutrophils (%) (Auto) 73 % (31-73) 49 % (31-73) Lymphocytes (%) (Auto) 16 % (24-48) 39 % (24-48) Monocytes (%) (Auto) 10 % (0-9) 10 % (0-9) Eosinophils (%) (Auto) 0 % (0-3) 2 % (0-3) Basophils (%) (Auto) 0 % (0-3) 1 % (0-3) Neutrophils # (Auto) 5.4 x10^3uL (1.8-7.7) 3.3 x10^3uL (1.8-7.7) Lymphocytes # (Auto) 1.2 x10^3/uL (1.0-4.8) 2.6 x10^3/uL (1.0-4.8) Monocytes # (Auto) 0.8 x10^3/uL (0.0-1.1) 0.7 x10^3/uL (0.0-1.1) Eosinophils # (Auto) 0.0 x10^3/uL (0.0-0.7) 0.1 x10^3/uL (0.0-0.7) Basophils # (Auto) 0.0 x10^3/uL (0.0-0.2) 0.1 x10^3/uL (0.0-0.2) Sodium Level 123 mmol/L (136-145) 129 mmol/L (136-145) Potassium Level 2.9 mmol/L (3.5-5.1) 4.3 mmol/L (3.5-5.1) Chloride Level 83 mmol/L (98-107) 92 mmol/L (98-107) Carbon Dioxide Level 33 mmol/L (21-32) 32 mmol/L (21-32) Anion Gap 7 (6-14) 5 (6-14) Blood Urea Nitrogen 13 mg/dL (7-20) 13 mg/dL (7-20) Creatinine 1.5 mg/dL (0.6-1.0) 1.4 mg/dL (0.6-1.0) Estimated GFR (Cockcroft-Gault) 34.6 37.5 Glucose Level 120 mg/dL (70-99) 92 mg/dL (70-99) Calcium Level 8.7 mg/dL (8.5-10.1) 8.4 mg/dL (8.5-10.1) Vitals Vital Signs Date Time Temp Pulse Resp B/P (MAP) Pulse Ox O2 Delivery O2 Flow Rate FiO2 11/09/16 08:36 77 138/65 11/09/16 08:33 20 Room Air 11/09/16 07:00 97.6 16 97.6 VTE Prophylaxis VTE Prophylaxis Devices: Yes VTE Pharmacological Prophylaxi: Yes Assessment Assessment 1.Hyponatremia 2.Dehydration 3.Ac renal insufficiency 4.CAD, s/p CABG 5.Kojo carotid surgeries 6.Anxiety and depression 7.Chronic narcotic pain meds Plan Plan iv normal saline 125 cc/hr. hold off on diuretics hold off on antidepressants MRI of brain,last one 5 yrs ago. monitor electrolytes. DVT prevention. For more details regarding further plans, please refer to the orders. RONNELL CALDERON MD Nov 09, 2016 10:23
[2016-11-09 10:48] VITALS: BP 96/51
[2016-11-09] MEDS ORDERED: ENOXAPARIN 40 MG/0.4 ML SYRINGE. SQ SCH (12:00)
[2016-11-09 14:39] VITALS: BP_SYST 90; BP_SYST 97; BP_DIAS 52; BP_DIAS 59
[2016-11-09 19:59] VITALS: BP 130/67
[2016-11-09] MEDS: ATORVASTATIN CALCIUM 40 MG TABLET. PO SCH (20:05)
[2016-11-09] MEDS: ZOLPIDEM 5 MG TABLET. PO PRN (22:20)
[2016-11-09 23:26] VITALS: BP 146/63
[2016-11-10] MEDS: oxyCODONE IR 5 MG TABLET PO PRN ×2 (02:26→10:09)
[2016-11-10 03:00] VITALS: BP 165/74
[2016-11-10] MEDS: IV NORMAL SALINE 1000ML BAG 1,000 ML IV SCH (05:19)
[2016-11-10 05:49] LABS: CALCIUM 7.8 mg/dL (8.5-10.1); CREATININE 1.1 mg/dL (0.6-1.0); GFR 49.5; POTASSIUM 4.5 mmol/L (3.5-5.1)
[2016-11-10 07:00] VITALS: BP 155/79
[2016-11-10] MEDS: PANTOPRAZOLE 40 MG TABLET.DR. PO SCH (08:12)
[2016-11-10] MEDS: ASPIRIN ENTERIC COATED 81 MG TABLET.DR. PO SCH (08:12)
[2016-11-10] MEDS: oxyCODONE ER 10 MG TAB.ER.12H PO SCH (08:14)
[2016-11-10] MEDS: hydrALAZINE 25 MG TABLET PO SCH (08:16)
[2016-11-10] MEDS: ATENOLOL 50 MG TABLET. PO SCH (08:16)
--- NOTE | 2016-11-10 10:32 | PDOC ---
PROGRESS NOTES Subjective Subjective feeling good.want to go home Objective Objective Vital Signs Date Time Temp Pulse Resp B/P (MAP) Pulse Ox O2 Delivery O2 Flow Rate FiO2 11/10/16 10:09 Room Air 11/10/16 08:16 73 155/79 11/10/16 08:14 16 11/10/16 07:00 97.7 98 97.7 Intake and Output 11/10/16 07:00 Intake Total 5105 ml Balance 5105 ml Intake Oral 980 ml IV Total 1000 ml Other 3125 ml # Voids 7 Physical Exam Abdomen: Normal bowel sounds, Soft Heart: Regular rate, Normal S1, Normal S2 General: Alert HEENT: Atraumatic Lungs: Clear to auscultation MUSCULOSKELETAL: No deformity, Osteoarthritic changes both hands Neck: Supple Neuro: Normal speech Psych/Mental Status: Mental status NL Skin: No breakdown Diagnosis Problem List Problems Medical Problems: (1) Generalized weakness Status: Acute (2) Hyponatremia Status: Acute Assessment Assessment Problems Medical Problems: (1) Generalized weakness Status: Acute (2) Hyponatremia Status: Acute Hyponatremia corrected Na 138 do not want MRI claustrophobic. d/c home today Problems: Plan Plan of Care Problems Medical Problems: (1) Generalized weakness Status: Acute (2) Hyponatremia Status: Acute Comment Review of Relevant I have reviewed the following items daniela (where applicable) has been applied. Labs Laboratory Tests Test 11/10/16 03:30 Sodium Level 134 mmol/L (136-145) Potassium Level 4.5 mmol/L (3.5-5.1) Chloride Level 100 mmol/L (98-107) Carbon Dioxide Level 30 mmol/L (21-32) Anion Gap 4 (6-14) Blood Urea Nitrogen 12 mg/dL (7-20) Creatinine 1.1 mg/dL (0.6-1.0) Estimated GFR (Cockcroft-Gault) 49.5 Glucose Level 86 mg/dL (70-99) Calcium Level 7.8 mg/dL (8.5-10.1) Medications Current Medications Enoxaparin Sodium (Lovenox 40mg Syringe) 40 mg Q24H SQ Last administered on 11/09t 11:23; Start 11/09/16 at 12:00 Vitals/I & O Vital Sign - Last 24 Hours 11/09/16 11/09/16 11/09/16 11/09/16 10:48 12:33 14:39 19:59 Temp 97.7 97.7 97.8 97.7 97.7 97.8 Pulse 70 70 69 Resp 16 18 16 18 B/P (MAP) 96/51 (66) 97/52 (67) 130/67 (88) Pulse Ox 98 100 100 O2 Delivery Room Air Room Air Room Air Room Air 11/09/16 11/09/16 11/09/16 11/09/16 20:00 20:05 20:05 20:08 Pulse 82 Resp 18 B/P (MAP) 130/67 Pulse Ox 100 100 O2 Delivery Room Air Room Air Room Air 11/09/16 11/10/16 11/10/16 11/10/16 23:26 00:44 02:26 03:00 Temp 97.6 98.2 97.6 98.2 Pulse 65 66 Resp 18 18 18 18 B/P (MAP) 146/63 (90) 165/74 (104) Pulse Ox 100 100 100 96 O2 Delivery Room Air Room Air Room Air Room Air 11/10/16 11/10/16 11/10/16 11/10/16 05:20 07:00 07:25 08:14 Temp 97.7 97.7 Pulse 73 Resp 18 16 16 B/P (MAP) 155/79 (104) Pulse Ox 96 98 O2 Delivery Room Air Room Air Room Air Room Air 11/10/16 11/10/16 11/10/16 08:16 08:16 10:09 Pulse 73 73 B/P (MAP) 155/79 155/79 O2 Delivery Room Air Intake and Output 11/09/16 11/09/16 11/10/16 15:00 23:00 07:00 Intake Total 1560 ml 420 ml 3125 ml Balance 1560 ml 420 ml 3125 ml RONNELL CALDERON MD Nov 10, 2016 10:32
[2016-11-10 10:44] VITALS: BP 134/76
== END 2016-11-10 11:00 | disposition home or self-care (01) | DRG 683 ==
LOC: ER 16:47 → 5 NORTH 17:33
PROVIDERS: ADMIT Internal Medicine; ATTEND Internal Medicine
DX: N17.9 Acute kidney failure, unspecified (principal); E87.1 Hypo-osmolality and hyponatremia; E86.0 Dehydration; N28.9 Disorder of kidney and ureter, unspecified; E78.5 Hyperlipidemia, unspecified; F31.9 Bipolar disorder, unspecified; M19.90 Unspecified osteoarthritis, unspecified site; G89.29 Other chronic pain; W19.XXXA Unspecified fall, initial encounter; K21.9 Gastro-esophageal reflux disease without esophagitis; Z96.641 Presence of right artificial hip joint; I25.10 Atherosclerotic heart disease of native coronary artery without angina pectoris; F41.9 Anxiety disorder, unspecified; E78.00 Pure hypercholesterolemia, unspecified; E03.9 Hypothyroidism, unspecified; I10 Essential (primary) hypertension; Z87.891 Personal history of nicotine dependence; Z95.1 Presence of aortocoronary bypass graft; Z87.01 Personal history of pneumonia (recurrent); Z86.73 Personal history of transient ischemic attack (TIA), and cerebral infarction without residual deficits; Y93.89 Activity, other specified; Y99.8 Other external cause status; Y92.009 Unspecified place in unspecified non-institutional (private) residence as the place of occurrence of the external cause
CPT/HCPCS: 36415; 71020; 80048; 85027; 93005; 99406; J1650; J7030; Q0163; 99285-25

== ENCOUNTER → 2017-03-23 | Outpatient (CLI) | payer MEDICARE ==
[~2017-03-23] MED LIST changes: -ALPR0.25 PO; -ASPI-482 PO; -ATEN50TA PO; -ATOR10TA60 PO; -ATOR40TA59 PO; -Amoxicillin PO; -CETI10TA22 PO; -CITA40TA12 PO; -CLOP75TA57 PO; -ERGO500027 PO; -ESCITALOPRAM OX20 MG PO; +FLUMAZENIL 0.5 MG/5 ML VIAL. IV; -FLUT16SP NS; -FURO-68 PO; -HYDR-2868 PO; -HYDR12.53 PO; -HYDR1TAB26 PO; +LIDOCAINE 1% / SOD BICARB 8.4% 20 ML VIAL. IJ; -LISI-334 PO; -LISI10TA2 PO; -LISI1TAB5 PO; -LORA0.5T PO; -LORA1TAB PO; -MECL12.52 PO; +MIDAZOLAM HCL/PF 2 MG/2 ML VIAL.; +MIDAZOLAM HCL/PF 2 MG/2 ML VIAL. IV; +MIDAZOLAM HCL/PF 5 MG/5 ML VIAL.; +NALOXONE 0.4 MG/ML VIAL.; -NITR0.4T SL; -OMEP20TA8 PO; -OXYC10TA PO; -OXYC10TA45 PO; -SIMV40TA3 PO; -VENTOLIN HFA18 GM INH; -ZOLP10TA PO; -ZOLP5TAB PO; +diphenhydrAMINE 50 MG/ML VIAL; +fentaNYL PF VIAL 100 MCG/2 ML VIAL; +fentaNYL PF VIAL 250 MCG/5 ML VIAL
[2017-03-23 07:19] LABS: ADD MAN DIFF? NO
[2017-03-23 07:50] LABS: BASO % 1 % (0-3); EOS % 1 % (0-3); HEMOGLOBIN 11.7 g/dL (12.0-15.5); LYMPH % 13 % (24-48); MEAN CORPUSCULAR HEMOGLOBIN 31 pg (25-35); MEAN CORPUSCULAR HGB CONC 34 g/dL (31-37); MEAN CORPUSCULAR VOLUME 94 fL (79-100); MONO % 13 % (0-9); NEUT % 73 % (31-73); PLATELET COUNT 356 x10^3/uL (140-400); RED BLOOD COUNT 3.74 x10^6/uL (3.50-5.40); RED CELL DISTRIBUTION WIDTH 13.2 % (11.5-14.5); WHITE BLOOD COUNT 7.9 x10^3/uL (4.0-11.0)
[2017-03-23 07:59] LABS: PROTHROMBIN TIME PATIENT 12.9 SEC (11.7-14.0)
[2017-03-23] MEDS: fentaNYL PF VIAL 100 MCG/2 ML VIAL IV (08:01)
[2017-03-23] MEDS: hydrALAZINE 20 MG/ML VIAL. IVP (08:22)
[2017-03-23] MEDS: diphenhydrAMINE 50 MG/ML VIAL IM (09:55)
[2017-03-23] MEDS: LIDOCAINE 1% / SOD BICARB 8.4% 20 ML VIAL. IJ (09:55)
[2017-03-23] MEDS: diphenhydrAMINE 50 MG/ML VIAL IVP (09:58)
[2017-03-23] MEDS: MIDAZOLAM HCL/PF 5 MG/5 ML VIAL. IV (09:59)
[2017-03-23] MEDS: fentaNYL PF VIAL 250 MCG/5 ML VIAL IV (09:59)
== END | disposition home or self-care (01) ==
LOC: INTRAD 06:40
DX: M80.88XA Other osteoporosis with current pathological fracture, vertebra(e), initial encounter for fracture (principal); M85.88 Other specified disorders of bone density and structure, other site; I73.9 Peripheral vascular disease, unspecified; F41.9 Anxiety disorder, unspecified; I25.10 Atherosclerotic heart disease of native coronary artery without angina pectoris; I10 Essential (primary) hypertension; Z83.3 Family history of diabetes mellitus; K21.9 Gastro-esophageal reflux disease without esophagitis; E03.9 Hypothyroidism, unspecified; F32.9 Major depressive disorder, single episode, unspecified; F17.210 Nicotine dependence, cigarettes, uncomplicated; N17.9 Acute kidney failure, unspecified; Z95.1 Presence of aortocoronary bypass graft; Z86.73 Personal history of transient ischemic attack (TIA), and cerebral infarction without residual deficits; E78.00 Pure hypercholesterolemia, unspecified; M19.90 Unspecified osteoarthritis, unspecified site; Z79.899 Other long term (current) drug therapy
CPT/HCPCS: 0201T; 22511; 36415; 85025; 85610; 99152; 99153; C1758; J0360; J0690; J1200; J2250; J3010

== ENCOUNTER 2017-04-22 17:16 | Emergency (ER) | payer MEDICARE ==
[~2017-04-22] VITALS: Ht 165.1 cm; Wt 52.6 kg
[~2017-04-22 17:16] MED LIST changes: +ACET325T9 PO; +ALPR0.25 PO; +ASPI-482 PO; +ATEN50TA PO; +ATOR10TA60 PO; +ATOR40TA PO; +ATOR40TA59 PO; +ATROPINE 0.5 MG/5 ML DISP.SYRIN. ONE; +Amoxicillin PO; +BUSP10TA PO; +CETI10TA22 PO; +CITA40TA12 PO; +CLOP75TA57 PO; +DOCU100C28 PO; +EPINEPHrine SYRINGE 1 MG/10 ML SYRINGE ONE; +EPINEPHrine VIAL 30 MG/30 ML VIAL ONE; +ERGO500027 PO; +ESCITALOPRAM OX20 MG PO; +FLORICET; -FLUMAZENIL 0.5 MG/5 ML VIAL. IV; +FLUT16SP NS; +FURO-68 PO; +HYDR-2766 PO; +HYDR-2868 PO; +HYDR12.53 PO; +HYDR12.58 PO; +HYDR1TAB26 PO; +LIDO700A39 TP; -LIDOCAINE 1% / SOD BICARB 8.4% 20 ML VIAL. IJ; +LISI-334 PO; +LISI10TA2 PO; +LISI1TAB5 PO; +LORA0.5T PO; +LORA1TAB PO; +MECL12.52 PO; +MELO7.5T29 PO; -MIDAZOLAM HCL/PF 2 MG/2 ML VIAL.; -MIDAZOLAM HCL/PF 2 MG/2 ML VIAL. IV; -MIDAZOLAM HCL/PF 5 MG/5 ML VIAL.; +MORP15TA80 PO; -NALOXONE 0.4 MG/ML VIAL.; +NITR0.4T SL; +OLAN15TA3 PO; +OMEP20TA8 PO; +OXYC10TA PO; +OXYC10TA45 PO; +OXYC5CAP PO; +POTASSIUM CHLO10 MEQ PO; +PROAIR HFA8.5 GM INH; +SIMV40TA3 PO; +TRAZ50TA15 PO; +VENTOLIN HFA18 GM INH; +ZALE10CA44 PO; +ZOLP10TA PO; +ZOLP5TAB PO; +ZOLP5TAB5 PO; +acetaminophen; -diphenhydrAMINE 50 MG/ML VIAL; -fentaNYL PF VIAL 100 MCG/2 ML VIAL; -fentaNYL PF VIAL 250 MCG/5 ML VIAL
--- NOTE | 2017-04-22 17:42 | RAD ---
CT Head W/O Contrast: History: APHASIA H/O CVA PREV SENT Comparison: March 12, 2017 Axial images were obtained without contrast. There is moderate diffuse atrophy. There is no mass effect, extraaxial fluid collections or hydrocephalus. There is no focal loss of valero-white matter distinction to suggest acute ischemia, i.e. stroke. There is a gaze to the right. Impression: 1. Moderate diffuse atrophy is advanced for the patient's age but was seen previously. 2. There is a gaze to the right however there is no acute intracranial findings. These results were called to Dr. CLEARY and verified by read back at the time of dictation. PQRS Compliance Statement: One or more of the following individualized dose reduction techniques were utilized for this examination: 1. Automated exposure control 2. Adjustment of the mA and/or kV according to patient size 3. Use of iterative reconstruction technique FOR INTERNAL CODING PURPOSES Critical result: Findings discussed with ROYAL CLEARY at 04/22/2017 5:38 PM. RESULT CODE: (C) Electronically signed by: Alejandro Stafford III, MD (04/22/2017 5:38 PM) [facility]
[2017-04-22 17:44] LABS: POTASSIUM ISTAT 2.9 mmol/L (3.5-5.0)
--- NOTE | 2017-04-22 17:49 | PHYS DOC ---
Past Medical History Past Medical History: Anxiety, Arthritis, Bronchitis, CAD, Depression, High Cholesterol, Hypertension Additional Past Medical Histor: blood clots, CHRONIC PAIN, HYPONATREMIA Past Surgical History: Coronary Bypass Surgery, , Hip Replacement, Other Additional Past Surgical Histo: total R hip, R shoulder, stent placement, R & L carotid Alcohol Use: None Drug Use: None Adult General HPI HPI Patient is a 66 year old who presents with shaking, collapse and decreased mental status. This is a 66-year-old female past medical history of CEA bilaterally as well as hyponatremia. At 420 her daughter gave her a lorazepam. She normally is a [facility] however daughter had taken her home to sheepskin pickler some things. At 440 she was in the car had generalized shaking episode. Following that she was difficult to arouse. En route she would not answer any questions. No focal deficit other than perhaps some facial droop was noted per the EMS. Question of seizure. Onset of symptoms was at 440. No further history is a panel for the patient initially. History is obtained from the EMS. She was noted to be hypertensive with a last blood pressure being 195/85 per the paramedics. Review of Systems Review of Systems I am unable to obtain review of systems secondary to decreased mental status. Current Medications Current Medications Current Medications Medications (Trade) Dose Ordered Sig/Sherrell Start Time Stop Time Status Last Admin Dose Admin Albuterol Sulfate (Ventolin Neb Soln) 2.5 mg STK-MED ONCE 04/22/17 19:42 04/22/17 19:43 DC Etomidate (Amidate) 20 mg STK-MED ONCE 04/22/17 20:17 04/22/17 20:18 DC Levetiracetam 1000 mg/Sodium Chloride 110 ml @ 440 mls/hr 1X ONCE 04/22/17 18:15 04/22/17 18:29 DC 04/22/17 18:18 440 MLS/HR Lorazepam (Ativan) 2 mg 1X ONCE 04/22/17 18:15 04/22/17 18:16 DC 04/22/17 18:16 2 MG Nicardipine HCl 50 mg/Sodium Chloride 270 ml @ 0 mls/hr CONT PRN 04/22/17 18:00 Propofol 50 ml @ 0 mls/hr 1X ONCE 04/22/17 18:15 04/22/17 18:16 DC 04/22/17 18:16 1.5 MLS/HR Propofol (Diprivan) 200 mg 1X ONCE 04/22/17 18:15 04/22/17 18:16 Cancel Succinylcholine Chloride (Anectine) 200 mg STK-MED ONCE 04/22/17 20:19 04/22/17 20:20 DC Allergies Allergies Allergies Coded Allergies Type Severity Reaction Last Updated Verified No Known Drug Allergies 10/01/16 No Physical Exam Physical Exam Constitutional: She has her eyes closed will open her eyes to voice. Will not speak HENT: Atraumatic normocephalic. Very poor dentition. Eyes: Her pupils are equal bilaterally. Neck: Neck is supple. Cardiovascular: She is a regular rate and rhythm with occasional premature beat Lungs & Thorax: Lungs are clear to auscultation bilaterally. Abdomen: Nontender nondistended Skin: Warm dry no erythema no rash; pressure sacral ulcer on sacrum at least grade 2. Back: Appears normal. Extremities: There is no peripheral edema. Neurologic: Her eyes are closed. She will open her eyes but will not speak. She is moving upper and lower extremities appropriately. I do not notice any focal old cranial nerve deficit. She appears sedated. She will not follow commands. Psychologic: I am unable to evaluate Current Patient Data Vital Signs Vital Signs Date Time Temp Pulse Resp B/P (MAP) Pulse Ox O2 Delivery O2 Flow Rate FiO2 04/22/17 19:00 96 20 100 04/22/17 17:16 98.0 224/87 (132) Room Air 98.0 Lab Values Laboratory Tests Test 04/22/17 17:22 04/22/17 17:30 04/22/17 17:40 Glucose (Fingerstick) 107 mg/dL (70-99) H White Blood Count 7.6 x10^3/uL (4.0-11.0) Red Blood Count 4.20 x10^6/uL (3.50-5.40) Hemoglobin 13.2 g/dL (12.0-15.5) Hematocrit 39.9 % (36.0-47.0) Mean Corpuscular Volume 95 fL (79-100) Mean Corpuscular Hemoglobin 32 pg (25-35) Mean Corpuscular Hemoglobin Concent 33 g/dL (31-37) Red Cell Distribution Width 13.9 % (11.5-14.5) Platelet Count 347 x10^3/uL (140-400) Prothrombin Time 12.7 SEC (11.7-14.0) Prothrombin Time INR 1.0 (0.8-1.1) PTT 30 SEC (24-38) Sodium Level 140 mmol/L (136-145) Potassium Level 2.9 mmol/L (3.5-5.1) *L Chloride Level 99 mmol/L (98-107) Carbon Dioxide Level 28 mmol/L (21-32) Anion Gap 13 (6-14) 20 mmol/L (6-14) H Blood Urea Nitrogen 11 mg/dL (7-20) Creatinine 0.9 mg/dL (0.6-1.0) Estimated GFR (Cockcroft-Gault) 62.5 Glucose Level 126 mg/dL (70-99) H 127 mg/dL (70-99) H Calcium Level 9.5 mg/dL (8.5-10.1) POC Hemoglobin 13.6 g/dL (12-15) POC Hematocrit 40 % (36-40) POC Sodium 138 mmol/L (135-145) POC Potassium 2.9 mmol/L (3.5-5.0) L POC Chloride 94 mmol/L (98-110) L POC Total CO2 28 mmol/L (23-32) POC Blood Urea Nitrogen 16 mg/dL (8-26) POC Creatinine 0.8 mg/dL (0.5-1.4) POC Ionized Calcium (Leon) 1.14 mmol/L (1.13-1.32) Laboratory Tests 04/22/17 17:30 Laboratory Tests 04/22/17 17:30 04/22/17 17:40 EKG EKG EKG is a sinus tachycardia with frequent PVCs. There is no STEMI. Rate of 1:15. Time interpreted 1730[] Radiology/Procedures Radiology/Procedures CT head with right gaze however, no ICH, int by radiologist CXR int by me: ET tube tip at clavicles and NG tube under diaphargm. Course & Med Decision Making Course & Med Decision Making Pertinent Labs and Imaging studies reviewed. (See chart for details) []She was activated as an acute stroke code. I did consult with Dr. Esposito over the phone and given that this a possibility of a seizure and more global than focal deficits Dr. Esposito and myself have determined that she is not a candidate for TPA. Dr. Faith was notified and talked with him at [phone]. Additionally on repeat evaluation patient is more alert now and seems to be rapidly improving. I did get an i-STAT her sodium was 138 potassium is 2.9 no other focal deficits. Initial CT stat read by the radiologist as normal. She continues to be hypertensive we'll follow this closely. I will dose with Keppra and plan to admit however at this point the decision is to not give TPA given a Global symptoms as opposed to focal neurologic deficit. 1748 family history is brought in one of her new medicines called Marinol which she's been taking for 3 days. She continues to be extremely hypertensive. I will initiate nicardipine drip. I do suspect this is hypertensive crisis. 1803: Patient gazed to the right and then had a grand mal seizure diring which she gazed to the left. Patient had a grand mal seizure. Lasting approximately 2-3 minutes. She was post ictal and not protecting her airway. She was dropping her oxygen saturations. The decision is made to intubate. Endotracheal intubation. She was preoxygenated with bag valve mask. Mac 3 blade is used to pass a 7.5 Vietnamese ET tube on the first attempt 23 at the lips. Positive CO2 change and good breath sounds bilaterally. No decrease in oxygenation. 1814 just discussed with the family that she was only in a [facility] for skilled rehabilitation after a sacral injury. The history obtained from the granddaughter sounds like she had a seizure before coming in. She does not have a history of seizures. 1815: Discussed with Dr. Esposito the up-to-date. He agrees with the plan of Ativan Keppra and propofol. Continued recommendation to not give TPA given status epilepticus. [address] Calderon to admit. 1821: Patient is updated on the current events. Understands patient's intubated. Diagnosis of status epilepticus. They also understand that we are not giving TPA however it is impossible to exclude underlying CVA 100%. They understand the patient is not a candidate for TPA. I am ordering a stat MRI. 1840: I did d/w Dr. Esposito again. Given the right forced gaze to left forced gaze: this can be seen in seizure. However he does agree with stat MRI. If there re ischemic findings, we could consider TPA us to 4.5 hours after the ihitial event, which is at 440. 1840: I did discus with the family, who is aware of the plan. Essentially, we have a relative contraindication for not giving TPA, but we will obtain stat MRI to see if there was an ischemic event. At that point, when all information is back, we aill have a discussion of the risks and benefits of any action. CXR with adequate ET tube placement length. 1854: Re-examination: patient does NOT have a gaze preference. No seizure activity. Going to MRI. 1956: MAAME TODD CALLED ON PATIENT IN MRI: I am called to MRI. Patient I am told became difficult to ventilate and had bradycardia. Upon my arrival patient is very difficult to bag via BVM. Patient is still intubated with very decreased breath sounds bialterally. Given the severe difficulty ventilating I decided to extubate and re-intubate. Mac 3 used and a 7.5 italian. ET tub placed under direct visulaization. This is once again comfirmed with glidescope. Patient still very difficult to ventilate. Chest compressions are done. Epinephrine and atropine are given. Patient is in PEA and does not regain pulse. I did discuss with the family who agrees with stopping resuscitation efforts upon my recommendation. Following prolonged resuscitation efforts, with family's approval, efforts are stopped. There is no chance of meaningful survival. Dx: is status epilepticus, HTN crisis, respiratory arrest, cardiac arrest. CCT: 1.5 hours. I did discuss with Dr. Calderon who will sign certificate. Dragon Disclaimer Dragon Disclaimer This electronic medical record was generated, in whole or in part, using a voice recognition dictation system. Departure Departure Disposition: 20 Condition: Referrals: RONNELL CALDERON MD (PCP) ROYAL CLEARY MD Apr 22, 2017 17:49
[2017-04-22 17:51] LABS: HEMATOCRIT 39.9 % (36.0-47.0); HEMOGLOBIN 13.2 g/dL (12.0-15.5); RED BLOOD COUNT 4.2 x10^6/uL (3.50-5.40); RED CELL DISTRIBUTION WIDTH 13.9 % (11.5-14.5); WHITE BLOOD COUNT 7.6 x10^3/uL (4.0-11.0)
[2017-04-22] MEDS ORDERED: PROPOFOL 50 ML IV ONE ×2 (18:04→18:15)
[2017-04-22 18:05] LABS: CALCIUM 9.5 mg/dL (8.5-10.1); CREATININE 0.9 mg/dL (0.6-1.0); GFR 62.5
[2017-04-22 18:07] LABS: PROTHROMBIN TIME PATIENT 12.7 SEC (11.7-14.0)
[2017-04-22 18:12] LABS: POTASSIUM 2.9 mmol/L (3.5-5.1)
[2017-04-22] MEDS ORDERED: PROPOFOL 10 MG/ML (20ML) VIAL. IV ONE (18:15)
[2017-04-22 19:00] VITALS: BP 227/90
[2017-04-22] MEDS ORDERED: ALBUTEROL SULFATE 2.5 MG/3 ML NEBU. ONE (19:42)
[2017-04-22] MEDS ORDERED: ETOMIDATE 20 MG/10 ML VIAL. IV ONE (20:17)
[2017-04-22] MEDS ORDERED: SUCCINYLCHOLINE 200 MG/10 ML VIAL. ONE (20:19)
--- NOTE | 2017-04-23 08:04 | RAD ---
One view chest 04/22/2017 Clinical indication: Altered mental status. Comparison: Chest 03/12/2017 Findings: Prior median sternotomy. Cardiac and mediastinal silhouettes are unremarkable. No pleural effusion, pneumothorax or focal consolidation. Probable old right clavicular fracture. Impression: No acute cardiopulmonary abnormality.
--- NOTE | 2017-04-23 08:12 | RAD ---
AP chest 04/22/2017 Clinical indication: OG tube. Comparison: 04/22/2017 chest Findings: Prior median sternotomy. Placement of an endotracheal tube with distal tip well above the level of the jace. Transesophageal gastric tube coursing below the level of the hemidiaphragms with the distal tip not visualized and the proximal side port in the expected region of the proximal stomach. Cardiac and mediastinal silhouettes are unremarkable. No pleural effusion, pneumothorax or focal consolidation. Partial visualization of a right mid neck stent and left lower cervical surgical clips. Impression: 1. Placement of endotracheal and gastric tubes, as detailed. 2. No acute cardiopulmonary abnormality.
--- NOTE | 2017-04-23 11:31 | EKG ---
[facility] [address] [place] [address] Test Date: 2017-04-22 Test Time: 17:30:05 Pat Name: FELI ROSEN Department: Room: Gender: F Wheel Roller: : 1950 Requested By: ROYAL CLEARY Order Number: [id number] Reading MD: Lanre Canas Measurements Intervals [place] Rate: 114 P: -90 CA: 134 QRS: 67 QRSD: 78 T: -72 QT: 298 QTc: 413 Interpretive Statements SINUS TACHYCARDIA VENTRICULAR PREMATURE COMPLEX(ES) ATRIAL PREMATURE COMPLEX(ES) ST & T ABNORMALITY, CONSIDER INFERIOR ISCHEMIA OR LEFT VENTRICULAR STRAIN ABNORMAL ECG Electronically Signed On 05-06-2017 10:26:16 [employer] by Lanre Canas
== END 2017-04-22 19:52 | disposition expired ==
LOC: ER 17:16
DX: G40.901 Epilepsy, unspecified, not intractable, with status epilepticus (principal); I46.9 Cardiac arrest, cause unspecified; I16.9 Hypertensive crisis, unspecified; F41.9 Anxiety disorder, unspecified; M19.90 Unspecified osteoarthritis, unspecified site; I25.10 Atherosclerotic heart disease of native coronary artery without angina pectoris; F32.9 Major depressive disorder, single episode, unspecified; E78.00 Pure hypercholesterolemia, unspecified; I10 Essential (primary) hypertension; G89.29 Other chronic pain; Z86.73 Personal history of transient ischemic attack (TIA), and cerebral infarction without residual deficits; Z95.5 Presence of coronary angioplasty implant and graft
CPT/HCPCS: 31500; 36415; 51702; 70450; 71010; 80047; 80048; 82962; 85027; 85610; 85730; 92950; 93005; 96365; 96375; 99291; 99292; J0171; J0461; J1953; J2060; J2704